=== PATIENT | female | born 1940 | race Caucasian/White ===

== ENCOUNTER 2023-02-11 19:20 | Inpatient (IN) | payer MEDICARE, BC ==
[~2023-02-11] VITALS: Ht 165.1 cm; Wt 74.8 kg
[2023-02-11] MEDS ORDERED: CHOL400C5 PO (19:45)
[2023-02-11] MEDS ORDERED: CYAN100T44 PO (19:45)
[2023-02-11] MEDS ORDERED: CETI-90 PO (19:45)
[2023-02-11] MEDS ORDERED: DILT300T11 PO (19:45)
[2023-02-11] MEDS ORDERED: CYAN10006 IJ (19:45)
[2023-02-11] MEDS ORDERED: GABA-532 PO (19:45)
[2023-02-11] MEDS ORDERED: VITA-287 PO (19:45)
[2023-02-11] MEDS ORDERED: LOPE2CAP40 PO (19:45)
[2023-02-11] MEDS ORDERED: DAPA5TAB PO (19:45)
[2023-02-11] MEDS ORDERED: VIT1CAPS9 PO (19:45)
[2023-02-11] MEDS ORDERED: ALIS300T PO (19:45)
[2023-02-11] MEDS ORDERED: LEVO75TA7 PO (19:45)
[2023-02-11] MEDS ORDERED: MAGN200T5 PO (19:45)
[2023-02-11] MEDS ORDERED: ICOS1CAP PO (19:45)
[2023-02-11] MEDS ORDERED: EVOL140P3 SQ (19:45)
[2023-02-11] MEDS ORDERED: SITA100T PO (19:45)
[2023-02-11] MEDS ORDERED: APIX5TAB PO (19:45)
[2023-02-11] MEDS ORDERED: DONE10TA44 PO (19:45)
[2023-02-11 20:11] LABS: BASOPHILS % (AUTO) 0.2 % (0.0-2.0); DIFFERENTIAL COMMENT 0; HEMOGLOBIN 12.7 g/dL (10.9-14.3); LYMPHOCYTES # (AUTO) 0.8 K/uL (0.8-4.8); LYMPHOCYTES % (AUTO) 4.7 % (20.5-51.5); MEAN CORPUSCULAR HEMOGLOBIN 28.8 uug (24.7-32.8); MEAN CORPUSCULAR HGB CONC 33 g/dL (32.3-35.6); MEAN CORPUSCULAR VOLUME 88.4 fL (75.5-95.3); MONOCYTES # (AUTO) 1.3 K/uL (0.1-1.30); MONOCYTES % (AUTO) 7.3 % (0.0-11.0); NEUTROPHILS # (AUTO) 15.6 K/uL (1.8-8.9); NEUTROPHILS % (AUTO) 87.8 % (38.5-71.5); PLATELET COUNT (AUTO) 286 K/uL (179-408); RED BLOOD CELL COUNT(AUTO) 4.41 MIL/uL (3.63-4.92); RED CELL DISTRIBUTION WIDTH 14.7 % (12.3-17.7); WHITE BLOOD COUNT (AUTO) 17.7 K/uL (3.8-11.8)
[2023-02-11 20:13] LABS: CALCIUM 10.4 mg/dL (8.5-10.1); CARBON DIOXIDE 27 mmol/L (21-32); CHLORIDE 99 mmol/L (98-107); CREATININE 1.2 mg/dL (0.6-1.3); GLUCOSE 172 mg/dL (74-106); POTASSIUM 4.1 mmol/L (3.5-5.1); SODIUM SERUM 136 mmol/L (136-145); UREA NITROGEN, BLOOD 23 mg/dL (7-18)
[2023-02-11 20:20] LABS: AMMONIA < 10 umol/L (11-32)
[2023-02-11 20:21] LABS: ALANINE AMINOTRANSFERASE 17 U/L (14-59); ALBUMIN 3.4 g/dL (3.4-5.0); ALKALINE PHOSPHATASE 109 U/L (50-136); ASPARTATE AMINOTRANSFERASE 16 U/L (15-37); BILIRUBIN,DIRECT 0.2 mg/dL (0.0-0.2); BILIRUBIN,TOTAL 0.5 mg/dL (0.2-1.0)
[2023-02-11 20:27] LABS: THYROID STIMULATING HORMONE 1.57 mIU/mL (0.358-3.740)
[2023-02-11] MEDS ORDERED: levoFLOXacin 750 MG/D5W 150 ML PIGGYBACK IV ONE (20:30)
[2023-02-11] MEDS ORDERED: levoFLOXacin 750MG/D5W 150 ML IV ONE (20:40)
[2023-02-11 21:57] LABS: *BILIRUBIN,URIN NEGATIVE (NEGATIVE); *BLOOD, URINE 3+ (NEGATIVE); *COLOR,URINE YELLOW (YELLOW); *KETONES,URINE 1+ (NEGATIVE); *PROTEIN,URINE 2+ (NEGATIVE); *UROBILINOGEN,URINE 0.2 E.U./dl (NORMAL); LEUKOCYTE ESTERASE ,URINE NEGATIVE (NEGATIVE); NITRITE, URINE NEGATIVE (NEGATIVE)
[2023-02-11 21:58] LABS: *CLARITY,URINE HAZY (CLEAR); UGLUCOSE 3+ (NEGATIVE)
[2023-02-11 21:59] LABS: BACTERIA,URINE FEW /HPF (NONE SEEN); RBC,URINE 50-80 /HPF (0-3); SQUAMOUS EPITHELIAL CELL,UR FEW /HPF (NONE SEEN); WBC,URINE 0-3 /HPF (0-3)
[2023-02-11] MEDS ORDERED: CEFEPIME HCL 1 G in IV DEXTROSE 5% 50 ML IV ONE (22:15)
[2023-02-11] MEDS ORDERED: CEFEPIME HCL 1 G VIAL ONE (22:25)
[2023-02-11] MEDS ORDERED: ONDANSETRON 4 MG/2 ML VIAL IV PRN (23:00)
[2023-02-11] MEDS ORDERED: DEXTROSE 50% 50 ML DISP.SYRIN IV PRN (23:00)
[2023-02-11] MEDS ORDERED: MAGNESIUM HYDROXIDE 30 ML LIQUID UDC PO PRN (23:00)
[2023-02-11] MEDS ORDERED: REMEDY ESSENTIAL ZINC PASTE 113 GM TP PRN (23:00)
[2023-02-12 02:00] VITALS: BP 126/65; TEMP 98; O2SAT 96
[2023-02-12 04:00] VITALS: BP 125/63; TEMP 97.9; O2SAT 93
[2023-02-12] MEDS ORDERED: CEFEPIME HCL 1 G VIAL ONE (04:46)
[2023-02-12] MEDS: IV NS 1000 ML 1,000 ML IV PRN (04:54)
[2023-02-12] MEDS ORDERED: CEFEPIME HCL 1 G in IV DEXTROSE 5% 50 ML IV SCH ×2 (06:00→11:00)
[2023-02-12] MEDS: PANTOPRAZOLE SODIUM 40 MG TABLET.DR PO SCH (06:29)
[2023-02-12] MEDS: LEVOTHYROXINE SODIUM 75 MCG TABLET PO SCH (06:29)
[2023-02-12 06:59] LABS: BASOPHILS % (AUTO) 0.2 % (0.0-2.0); EOSINOPHILS % (AUTO) 0.2 % (0.0-7.0); HEMATOCRIT 36.3 % (31.2-41.9); HEMOGLOBIN 11.9 g/dL (10.9-14.3); LYMPHOCYTES # (AUTO) 1.3 K/uL (0.8-4.8); LYMPHOCYTES % (AUTO) 7.3 % (20.5-51.5); MEAN CORPUSCULAR HGB CONC 33 g/dL (32.3-35.6); MEAN CORPUSCULAR VOLUME 88.3 fL (75.5-95.3); MONOCYTES # (AUTO) 1.7 K/uL (0.1-1.30); MONOCYTES % (AUTO) 9.6 % (0.0-11.0); NEUTROPHILS # (AUTO) 14.5 K/uL (1.8-8.9); NEUTROPHILS % (AUTO) 82.7 % (38.5-71.5); PLATELET COUNT (AUTO) 245 K/uL (179-408); RED BLOOD CELL COUNT(AUTO) 4.11 MIL/uL (3.63-4.92); RED CELL DISTRIBUTION WIDTH 14.6 % (12.3-17.7); WHITE BLOOD COUNT (AUTO) 17.5 K/uL (3.8-11.8)
[2023-02-12 07:16] LABS: CALCIUM 9.8 mg/dL (8.5-10.1); CARBON DIOXIDE 27 mmol/L (21-32); CHLORIDE 101 mmol/L (98-107); CREATININE 1.1 mg/dL (0.6-1.3); GLUCOSE 156 mg/dL (74-106); MAGNESIUM 2.1 mg/dL (1.8-2.4); PHOSPHOROUS 2.8 mg/dL (2.5-4.9); SODIUM SERUM 137 mmol/L (136-145); UREA NITROGEN, BLOOD 19 mg/dL (7-18)
[2023-02-12 07:19] LABS: DIFFERENTIAL COMMENT 1
[2023-02-12] MEDS: BLOOD SUGAR DIAGNOSTIC 1 EACH STRIP VI SCH ×4 (07:45→21:21)
[2023-02-12] MEDS: CETIRIZINE HCL 10 MG TABLET PO SCH (08:44)
[2023-02-12] MEDS: CHOLECALCIFEROL 1,000 UNIT TABLET PO SCH (08:44)
[2023-02-12] MEDS: DONEPEZIL 10 MG TABLET PO SCH (08:44)
[2023-02-12] MEDS: VITAMIN B COMPLEX 1 TABLET PO SCH (08:45)
[2023-02-12] MEDS: OMEGA-3 FATTY ACIDS/FISH OIL CAPSULE PO SCH ×2 (08:45→17:00)
[2023-02-12] MEDS: DILTIAZEM HCL CD 300 MG CAP.SR.24H PO SCH (08:48)
[2023-02-12] MEDS ORDERED: CYANOCOBALAMIN 100 MCG TABLET PO SCH (09:00)
[2023-02-12] MEDS ORDERED: ALISKIREN HEMIFUMARATE 300 MG PO SCH (09:00)
[2023-02-12] MEDS: CYANOCOBALAMIN 1,000 MCG TABLET PO SCH (09:50)
[2023-02-12] MEDS: APIXABAN 5 MG TABLET PO SCH ×2 (09:51→17:00)
[2023-02-12] MEDS: INSULIN REGULAR, HUMAN 300 UNIT/3 ML VIAL SQ PRN ×2 (12:03→17:01)
[2023-02-12 16:00] VITALS: BP 124/44; TEMP 99.1; O2SAT 95
[2023-02-12] MEDS: CEFEPIME HCL 1 G in IV DEXTROSE 5% 50 ML IV SCH (16:59)
[2023-02-12] MEDS ORDERED: DEXTROSE 50% 50 ML DISP.SYRIN IV PRN (19:00)
[2023-02-12] MEDS ORDERED: INSULIN REGULAR, HUMAN 300 UNITS/3 ML VIAL SQ PRN (19:00)
[2023-02-12 22:00] VITALS: BP 120/54; TEMP 98.6; O2SAT 96
[2023-02-13] MEDS: CEFEPIME HCL 1 G in IV DEXTROSE 5% 50 ML IV SCH ×2 (05:29→16:03)
[2023-02-13] MEDS: PANTOPRAZOLE SODIUM 40 MG TABLET.DR PO SCH (06:48)
[2023-02-13] MEDS: LEVOTHYROXINE SODIUM 75 MCG TABLET PO SCH (06:48)
[2023-02-13] MEDS: BLOOD SUGAR DIAGNOSTIC 1 EACH STRIP VI SCH ×4 (07:07→21:16)
[2023-02-13 07:29] LABS: BASOPHILS % (AUTO) 0.2 % (0.0-2.0); EOSINOPHILS # (AUTO) 0.1 K/uL (0.0-0.7); EOSINOPHILS % (AUTO) 0.4 % (0.0-7.0); HEMATOCRIT 35.5 % (31.2-41.9); HEMOGLOBIN 11.7 g/dL (10.9-14.3); LYMPHOCYTES # (AUTO) 1.1 K/uL (0.8-4.8); LYMPHOCYTES % (AUTO) 8.2 % (20.5-51.5); MEAN CORPUSCULAR HGB CONC 33 g/dL (32.3-35.6); MEAN CORPUSCULAR VOLUME 87.8 fL (75.5-95.3); MONOCYTES # (AUTO) 1.4 K/uL (0.1-1.30); MONOCYTES % (AUTO) 9.9 % (0.0-11.0); NEUTROPHILS # (AUTO) 11.2 K/uL (1.8-8.9); NEUTROPHILS % (AUTO) 81.3 % (38.5-71.5); PLATELET COUNT (AUTO) 238 K/uL (179-408); RED BLOOD CELL COUNT(AUTO) 4.04 MIL/uL (3.63-4.92); RED CELL DISTRIBUTION WIDTH 14.3 % (12.3-17.7); WHITE BLOOD COUNT (AUTO) 13.8 K/uL (3.8-11.8)
[2023-02-13 07:35] LABS: DIFFERENTIAL COMMENT 1
[2023-02-13 07:39] LABS: CALCIUM 10.3 mg/dL (8.5-10.1); CARBON DIOXIDE 27 mmol/L (21-32); CHLORIDE 102 mmol/L (98-107); CREATININE 1.2 mg/dL (0.6-1.3); GLUCOSE 142 mg/dL (74-106); MAGNESIUM 2.1 mg/dL (1.8-2.4); PHOSPHOROUS 2.4 mg/dL (2.5-4.9); POTASSIUM 4.5 mmol/L (3.5-5.1); SODIUM SERUM 136 mmol/L (136-145); UREA NITROGEN, BLOOD 20 mg/dL (7-18)
[2023-02-13] MEDS: DONEPEZIL 10 MG TABLET PO SCH (08:36)
[2023-02-13] MEDS: CYANOCOBALAMIN 1,000 MCG TABLET PO SCH (08:36)
[2023-02-13] MEDS: APIXABAN 5 MG TABLET PO SCH ×2 (08:36→16:04)
[2023-02-13] MEDS: OMEGA-3 FATTY ACIDS/FISH OIL CAPSULE PO SCH ×2 (08:37→16:03)
[2023-02-13] MEDS: CETIRIZINE HCL 10 MG TABLET PO SCH (08:37)
[2023-02-13] MEDS: CHOLECALCIFEROL 1,000 UNIT TABLET PO SCH (08:37)
[2023-02-13] MEDS: VITAMIN B COMPLEX 1 TABLET PO SCH (08:40)
[2023-02-13] MEDS: DILTIAZEM HCL CD 300 MG CAP.SR.24H PO SCH (08:43)
[2023-02-13] MEDS: INSULIN REGULAR, HUMAN 300 UNIT/3 ML VIAL SQ PRN ×3 (10:52→21:17)
[2023-02-13 12:00] VITALS: BP 120/82; TEMP 98.2; O2SAT 98
[2023-02-13] MEDS: GLUCERNA SHAKE 237 ML CAN PO SCH ×2 (12:55→16:06)
[2023-02-13 16:00] VITALS: BP 127/64; TEMP 98.3; O2SAT 95
[2023-02-13] MEDS ORDERED: NEUTRA PHOS PACKET PO ONE (16:30)
[2023-02-13] MEDS: IV NS 1000 ML 1,000 ML IV PRN (18:41)
[2023-02-13 20:00] VITALS: BP 142/70; TEMP 99; O2SAT 96
[2023-02-14] VITALS: BP 138/69; TEMP 98.9; O2SAT 94
[2023-02-14 04:00] VITALS: BP 136/57; TEMP 98.8; O2SAT 93
[2023-02-14] MEDS: CEFEPIME HCL 1 G in IV DEXTROSE 5% 50 ML IV SCH ×2 (05:50→16:29)
[2023-02-14] MEDS: PANTOPRAZOLE SODIUM 40 MG TABLET.DR PO SCH (06:16)
[2023-02-14] MEDS: LEVOTHYROXINE SODIUM 75 MCG TABLET PO SCH (06:16)
[2023-02-14 06:21] LABS: BASOPHILS % (AUTO) 0.1 % (0.0-2.0); EOSINOPHILS % (AUTO) 0.2 % (0.0-7.0); HEMATOCRIT 33.9 % (31.2-41.9); HEMOGLOBIN 11.3 g/dL (10.9-14.3); LYMPHOCYTES # (AUTO) 1.2 K/uL (0.8-4.8); LYMPHOCYTES % (AUTO) 9.7 % (20.5-51.5); MEAN CORPUSCULAR HEMOGLOBIN 29.2 uug (24.7-32.8); MEAN CORPUSCULAR HGB CONC 33 g/dL (32.3-35.6); MEAN CORPUSCULAR VOLUME 87.8 fL (75.5-95.3); MONOCYTES # (AUTO) 1.2 K/uL (0.1-1.30); MONOCYTES % (AUTO) 9.8 % (0.0-11.0); NEUTROPHILS # (AUTO) 10.1 K/uL (1.8-8.9); NEUTROPHILS % (AUTO) 80.2 % (38.5-71.5); PLATELET COUNT (AUTO) 255 K/uL (179-408); RED BLOOD CELL COUNT(AUTO) 3.86 MIL/uL (3.63-4.92); RED CELL DISTRIBUTION WIDTH 14.4 % (12.3-17.7); WHITE BLOOD COUNT (AUTO) 12.6 K/uL (3.8-11.8)
[2023-02-14 06:32] LABS: DIFFERENTIAL COMMENT 1
[2023-02-14 06:35] LABS: CALCIUM 9.9 mg/dL (8.5-10.1); CARBON DIOXIDE 29 mmol/L (21-32); CHLORIDE 104 mmol/L (98-107); GLUCOSE 122 mg/dL (74-106); PHOSPHOROUS 2.5 mg/dL (2.5-4.9); POTASSIUM 3.8 mmol/L (3.5-5.1); SODIUM SERUM 138 mmol/L (136-145); UREA NITROGEN, BLOOD 17 mg/dL (7-18)
[2023-02-14] MEDS: ACETAMINOPHEN 325 MG TABLET PO PRN (06:35)
[2023-02-14] MEDS: BLOOD SUGAR DIAGNOSTIC 1 EACH STRIP VI SCH ×4 (06:41→21:08)
[2023-02-14] MEDS: OMEGA-3 FATTY ACIDS/FISH OIL CAPSULE PO SCH ×2 (08:32→16:35)
[2023-02-14] MEDS: CYANOCOBALAMIN 1,000 MCG TABLET PO SCH (08:33)
[2023-02-14] MEDS: APIXABAN 5 MG TABLET PO SCH ×2 (08:33→16:35)
[2023-02-14] MEDS: DONEPEZIL 10 MG TABLET PO SCH (08:33)
[2023-02-14] MEDS: CHOLECALCIFEROL 1,000 UNIT TABLET PO SCH (08:33)
[2023-02-14] MEDS: CETIRIZINE HCL 10 MG TABLET PO SCH (08:33)
[2023-02-14] MEDS: VITAMIN B COMPLEX 1 TABLET PO SCH (08:34)
[2023-02-14] MEDS: DILTIAZEM HCL CD 300 MG CAP.SR.24H PO SCH (08:34)
[2023-02-14] MEDS: GLUCERNA SHAKE 237 ML CAN PO SCH ×3 (08:35→16:36)
[2023-02-14] MEDS: INSULIN REGULAR, HUMAN 300 UNIT/3 ML VIAL SQ PRN ×2 (11:45→21:09)
[2023-02-14 12:01] VITALS: BP 130/65; TEMP 98.1; O2SAT 97
[2023-02-14 16:14] VITALS: BP 129/63; TEMP 98.1; O2SAT 98
[2023-02-14 20:13] VITALS: BP 147/61; TEMP 98.5; O2SAT 97
[2023-02-15] VITALS: BP 146/68; TEMP 98.8; O2SAT 97
[2023-02-15 04:00] VITALS: BP 131/59; TEMP 98.4; O2SAT 99
[2023-02-15] MEDS: CEFEPIME HCL 1 G in IV DEXTROSE 5% 50 ML IV SCH ×2 (05:22→16:43)
[2023-02-15] MEDS: LEVOTHYROXINE SODIUM 75 MCG TABLET PO SCH (06:28)
[2023-02-15] MEDS: PANTOPRAZOLE SODIUM 40 MG TABLET.DR PO SCH (06:28)
[2023-02-15] MEDS: BLOOD SUGAR DIAGNOSTIC 1 EACH STRIP VI SCH ×3 (06:31→16:31)
[2023-02-15 06:56] LABS: BASOPHILS % (AUTO) 0.3 % (0.0-2.0); EOSINOPHILS % (AUTO) 0.4 % (0.0-7.0); HEMATOCRIT 35.1 % (31.2-41.9); HEMOGLOBIN 11.6 g/dL (10.9-14.3); LYMPHOCYTES # (AUTO) 0.9 K/uL (0.8-4.8); LYMPHOCYTES % (AUTO) 9.5 % (20.5-51.5); MEAN CORPUSCULAR HEMOGLOBIN 28.9 uug (24.7-32.8); MEAN CORPUSCULAR HGB CONC 33 g/dL (32.3-35.6); MEAN CORPUSCULAR VOLUME 87.5 fL (75.5-95.3); MONOCYTES # (AUTO) 0.9 K/uL (0.1-1.30); MONOCYTES % (AUTO) 9.8 % (0.0-11.0); NEUTROPHILS # (AUTO) 7.2 K/uL (1.8-8.9); PLATELET COUNT (AUTO) 269 K/uL (179-408); RED BLOOD CELL COUNT(AUTO) 4.02 MIL/uL (3.63-4.92); RED CELL DISTRIBUTION WIDTH 14.6 % (12.3-17.7)
[2023-02-15 06:57] LABS: DIFFERENTIAL COMMENT 1
[2023-02-15 07:17] LABS: CALCIUM 9.9 mg/dL (8.5-10.1); PHOSPHOROUS 2.5 mg/dL (2.5-4.9); POTASSIUM 3.8 mmol/L (3.5-5.1)
[2023-02-15] MEDS: INSULIN REGULAR, HUMAN 300 UNIT/3 ML VIAL SQ PRN ×2 (07:39→16:32)
[2023-02-15] MEDS: CHOLECALCIFEROL 1,000 UNIT TABLET PO SCH (08:22)
[2023-02-15] MEDS: VITAMIN B COMPLEX 1 TABLET PO SCH (08:22)
[2023-02-15] MEDS: DILTIAZEM HCL CD 300 MG CAP.SR.24H PO SCH (08:22)
[2023-02-15] MEDS: DONEPEZIL 10 MG TABLET PO SCH (08:22)
[2023-02-15] MEDS: OMEGA-3 FATTY ACIDS/FISH OIL CAPSULE PO SCH ×2 (08:22→16:44)
[2023-02-15] MEDS: ACETAMINOPHEN 325 MG TABLET PO PRN (08:23)
[2023-02-15] MEDS: APIXABAN 5 MG TABLET PO SCH ×2 (08:23→16:45)
[2023-02-15] MEDS: GLUCERNA SHAKE 237 ML CAN PO SCH ×3 (08:24→16:46)
[2023-02-15] MEDS: CETIRIZINE HCL 10 MG TABLET PO SCH (08:24)
[2023-02-15] MEDS: CYANOCOBALAMIN 1,000 MCG TABLET PO SCH (08:24)
[2023-02-15] MEDS: IV NS 1000 ML 1,000 ML IV PRN (10:09)
[2023-02-15 11:34] VITALS: BP 127/63; TEMP 98.5
[2023-02-15] MEDS ORDERED: LEVO500T90 PO (14:35)
[2023-02-15 16:02] VITALS: BP 112/50; TEMP 98
[2023-02-15 20:06] VITALS: BP 153/73; TEMP 97.8; O2SAT 97
== END 2023-02-15 20:30 | DRG 640 ==
LOC: ER 19:22 → MEDSURG3 22:44 → TELE3 22:45
PROVIDERS: ADMIT Nurse Practitioner Family; ATTEND Student in an Organized Health Care Education/Training Program
DX: E86.0 Dehydration (principal); G93.41 Metabolic encephalopathy; R65.11 Systemic inflammatory response syndrome (SIRS) of non-infectious origin with acute organ dysfunction; E11.65 Type 2 diabetes mellitus with hyperglycemia; E03.9 Hypothyroidism, unspecified; S90.512A Abrasion, left ankle, initial encounter; S90.511A Abrasion, right ankle, initial encounter; W19.XXXA Unspecified fall, initial encounter; Y92.099 Unspecified place in other non-institutional residence as the place of occurrence of the external cause; Z91.81 History of falling; I10 Essential (primary) hypertension; Z79.84 Long term (current) use of oral hypoglycemic drugs; Z88.0 Allergy status to penicillin; Z79.01 Long term (current) use of anticoagulants
CPT/HCPCS: 36415; 70450; 71045; 83605; 83735; 84100; 84443; 84484; 85025; 85730; 87040; 93005; A4663; A6209; G0378; J0692; J1815; J1956; J7040

== ENCOUNTER 2023-10-31 13:27 | Inpatient (IN) | payer BC, MEDICARE ==
[~2023-10-31] VITALS: Ht 160 cm; Wt 84.8 kg
[~2023-10-31 13:27] MED LIST: ALIS300T PO; APIX5TAB PO; CETI-90 PO; CHOL400C5 PO; CYAN10006 IJ; CYAN100T44 PO; DAPA5TAB PO; DILT300T11 PO; DONE10TA44 PO; EVOL140P3 SQ; GABA-532 PO; ICOS1CAP PO; LEVO500T90 PO; LEVO75TA7 PO; LOPE2CAP40 PO; MAGN200T5 PO; SITA100T PO; VIT1CAPS9 PO; VITA-287 PO
[2023-10-31] MEDS ORDERED: UBID200C36 PO (13:56)
[2023-10-31 14:00] LABS: BASOPHILS # (AUTO) 0.1 K/UL (0.0-0.2); BASOPHILS % (AUTO) 0.3 % (0.0-2.0); HEMATOCRIT 34.5 % (31.2-41.9); HEMOGLOBIN 10.6 g/dL (10.9-14.3); LYMPHOCYTES # (AUTO) 0.9 K/uL (0.8-4.8); LYMPHOCYTES % (AUTO) 3.7 % (20.5-51.5); MEAN CORPUSCULAR HEMOGLOBIN 23.5 uug (24.7-32.8); MEAN CORPUSCULAR HGB CONC 31 g/dL (32.3-35.6); MEAN CORPUSCULAR VOLUME 76.9 fL (75.5-95.3); MONOCYTES # (AUTO) 1.3 K/uL (0.1-1.30); MONOCYTES % (AUTO) 5.7 % (0.0-11.0); NEUTROPHILS # (AUTO) 21.1 K/uL (1.8-8.9); NEUTROPHILS % (AUTO) 90.3 % (38.5-71.5); PLATELET COUNT (AUTO) 360 K/uL (179-408); RED BLOOD CELL COUNT(AUTO) 4.48 MIL/uL (3.63-4.92); RED CELL DISTRIBUTION WIDTH 16.7 % (12.3-17.7); WHITE BLOOD COUNT (AUTO) 23.3 K/uL (3.8-11.8)
[2023-10-31 14:02] LABS: DIFFERENTIAL COMMENT 1
[2023-10-31 14:14] LABS: CALCIUM 10.5 mg/dL (8.5-10.1); CARBON DIOXIDE 26 mmol/L (21-32); CHLORIDE 96 mmol/L (98-107); CREATININE 1.3 mg/dL (0.6-1.3); GLUCOSE 187 mg/dL (74-106); POTASSIUM 4.7 mmol/L (3.5-5.1); SODIUM SERUM 133 mmol/L (136-145); UREA NITROGEN, BLOOD 17 mg/dL (7-18)
[2023-10-31 14:22] LABS: ALANINE AMINOTRANSFERASE 12 U/L (14-59); ALBUMIN 3.1 g/dL (3.4-5.0); ALKALINE PHOSPHATASE 110 U/L (50-136); ASPARTATE AMINOTRANSFERASE 9 U/L (15-37); BILIRUBIN,DIRECT 0.2 mg/dL (0.0-0.2); BILIRUBIN,TOTAL 0.8 mg/dL (0.2-1.0); LIPASE 27 U/L (16-77); TOTAL PROTEIN, SERUM 7.6 g/dL (6.4-8.2)
[2023-10-31] MEDS: METRONIDAZOLE 500 MG/NS 100 ML PIGGYBACK IV ONE (15:05)
[2023-10-31] MEDS ORDERED: METRONIDAZOLE 500 MG/NS 100ML 100 ML IV ONE (15:07)
[2023-10-31] MEDS: CEFTRIAXONE 2 G in IV DEXTROSE 5% 100 ML IV ONE (15:56)
[2023-10-31 17:31] LABS: *BILIRUBIN,URIN NEGATIVE (NEGATIVE); *BLOOD, URINE 2+ (NEGATIVE); *CLARITY,URINE CLOUDY (CLEAR); *COLOR,URINE YELLOW (YELLOW); *KETONES,URINE 2+ (NEGATIVE); *PROTEIN,URINE 2+ (NEGATIVE); *UROBILINOGEN,URINE 0.2 E.U./dl (NORMAL); LEUKOCYTE ESTERASE ,URINE 3+ (NEGATIVE); NITRITE, URINE POSITIVE (NEGATIVE); PH,URINE 5.5 (5.0-8.0)
[2023-10-31 17:32] LABS: UGLUCOSE 3+ (NEGATIVE)
[2023-10-31 18:01] LABS: BACTERIA,URINE MODERATE /HPF (NONE SEEN); RBC,URINE 20-50 /HPF (0-3); SQUAMOUS EPITHELIAL CELL,UR FEW /HPF (NONE SEEN); WBC,URINE TNTC /HPF (0-3)
[2023-10-31] MEDS ORDERED: MEROPENEM 1 G in IV NORMAL SALINE 100 ML IV SCH (22:00)
[2023-10-31 22:23] VITALS: BP 120/58; TEMP 98.8; O2SAT 96
[2023-10-31] MEDS: IV D5 1/2 NS 1000 ML 1,000 ML IV PRN (22:34)
[2023-10-31] MEDS ORDERED: MEROPENEM 1GM/NS 100ML IVPB **ER PYXIS ONLY IV ONE (22:54)
[2023-10-31] MEDS: MEROPENEM 1 G in IV NORMAL SALINE 100 ML IV SCH (22:59)
[2023-11-01 07:33] LABS: BASOPHILS # (AUTO) 0.1 K/UL (0.0-0.2); BASOPHILS % (AUTO) 0.2 % (0.0-2.0); HEMATOCRIT 30.7 % (31.2-41.9); HEMOGLOBIN 9.7 g/dL (10.9-14.3); LYMPHOCYTES # (AUTO) 1.4 K/uL (0.8-4.8); LYMPHOCYTES % (AUTO) 3.6 % (20.5-51.5); MEAN CORPUSCULAR HGB CONC 32 g/dL (32.3-35.6); MEAN CORPUSCULAR VOLUME 75.7 fL (75.5-95.3); MONOCYTES # (AUTO) 2.1 K/uL (0.1-1.30); MONOCYTES % (AUTO) 5.3 % (0.0-11.0); NEUTROPHILS % (AUTO) 90.9 % (38.5-71.5); PLATELET COUNT (AUTO) 323 K/uL (179-408); RED BLOOD CELL COUNT(AUTO) 4.05 MIL/uL (3.63-4.92); RED CELL DISTRIBUTION WIDTH 16.2 % (12.3-17.7)
[2023-11-01 07:49] LABS: ALANINE AMINOTRANSFERASE 14 U/L (14-59); ALBUMIN 2.5 g/dL (3.4-5.0); ALKALINE PHOSPHATASE 106 U/L (50-136); ASPARTATE AMINOTRANSFERASE 12 U/L (15-37); BILIRUBIN,TOTAL 0.7 mg/dL (0.2-1.0); CALCIUM 9.7 mg/dL (8.5-10.1); CARBON DIOXIDE 27 mmol/L (21-32); CHLORIDE 97 mmol/L (98-107); CHOLESTEROL 68 mg/dL (<200); CREATININE 1.1 mg/dL (0.6-1.3); GLUCOSE 180 mg/dL (74-106); HDL CHOLESTEROL 40 mg/dL (40-60); MAGNESIUM 1.9 mg/dL (1.8-2.4); PHOSPHOROUS 2.8 mg/dL (2.5-4.9); POTASSIUM 3.6 mmol/L (3.5-5.1); SODIUM SERUM 133 mmol/L (136-145); TOTAL PROTEIN, SERUM 6.8 g/dL (6.4-8.2); TRIGLYCERIDES 62 MG/DL (30-150); UREA NITROGEN, BLOOD 12 mg/dL (7-18)
[2023-11-01 07:50] LABS: IRON, SERUM 8 ug/dL (50-175)
[2023-11-01] MEDS: PANTOPRAZOLE SODIUM 40 MG VIAL IV SCH (08:31)
[2023-11-01] MEDS: ENOXAPARIN SODIUM 80 MG/0.8 ML DISP.SYRIN SQ SCH (08:36)
[2023-11-01] MEDS ORDERED: ENOXAPARIN SODIUM 30 MG/0.3 ML DISP.SYRIN SUBCUT SCH (09:00)
[2023-11-01 09:12] LABS: DIFFERENTIAL COMMENT 1
[2023-11-01 09:28] LABS: THYROID STIMULATING HORMONE 1.711 mIU/mL (0.358-3.740)
[2023-11-01 09:37] LABS: WHITE BLOOD COUNT (AUTO) 38.5 K/uL (3.8-11.8)
[2023-11-01] MEDS ORDERED: IOHEXOL 300MG/ML 100 ML INFUS..BTL ONE (09:55)
[2023-11-01] MEDS ORDERED: SWABABLE VALVE TRANSFER SET EA MC ONE (09:55)
[2023-11-01] MEDS ORDERED: IV NORMAL SALINE 250 ML IV ONE (09:55)
[2023-11-01] MEDS: VANCOMYCIN IV 1,000 MG in IV DEXTROSE 5% 250 ML IV ONE (11:47)
[2023-11-01 12:00] VITALS: BP 142/72; TEMP 97.2; O2SAT 98
[2023-11-01] MEDS: SOD FERRIC GLUC COMPLX/SUCROSE 125 MG in IV NORMAL SALINE 100 ML IV SCH (14:21)
[2023-11-01 14:45] LABS: BAND % (MANUAL) 25 % (0-10); LYMPHOCYTES % (MANUAL) 8 % (20-40); MONOCYTES % (MANUAL) 7 % (2-10); NEUTROPHILS % (MANUAL) 58 % (42-75); PLATELET ESTIMATE ADEQUATE; REACTIVE LYMPHOCYTES 2 % (0-0)
[2023-11-01 14:46] LABS: ANISOCYTOSIS 2+
[2023-11-01 16:00] VITALS: BP 121/55; TEMP 97.6; O2SAT 98
[2023-11-01] MEDS: MEROPENEM 1 G in IV NORMAL SALINE 100 ML IV SCH (17:13)
[2023-11-01] MEDS: MICAFUNGIN SODIUM 100 MG in IV NORMAL SALINE 100 ML IV SCH (19:14)
[2023-11-01 20:27] VITALS: BP 132/80; TEMP 99.1; O2SAT 92
[2023-11-02 00:12] VITALS: BP 138/64; TEMP 97.7; O2SAT 92
[2023-11-02 04:30] VITALS: BP 124/76; TEMP 97.9; O2SAT 93
[2023-11-02 06:24] LABS: BASOPHILS # (AUTO) 0.1 K/UL (0.0-0.2); BASOPHILS % (AUTO) 0.3 % (0.0-2.0); EOSINOPHILS # (AUTO) 0.1 K/uL (0.0-0.7); EOSINOPHILS % (AUTO) 0.2 % (0.0-7.0); HEMATOCRIT 33.7 % (31.2-41.9); HEMOGLOBIN 10.5 g/dL (10.9-14.3); LYMPHOCYTES # (AUTO) 1.5 K/uL (0.8-4.8); LYMPHOCYTES % (AUTO) 3.9 % (20.5-51.5); MEAN CORPUSCULAR HEMOGLOBIN 23.6 uug (24.7-32.8); MEAN CORPUSCULAR HGB CONC 31 g/dL (32.3-35.6); MEAN CORPUSCULAR VOLUME 75.7 fL (75.5-95.3); MONOCYTES # (AUTO) 1.7 K/uL (0.1-1.30); MONOCYTES % (AUTO) 4.3 % (0.0-11.0); NEUTROPHILS # (AUTO) 35.2 K/uL (1.8-8.9); NEUTROPHILS % (AUTO) 91.3 % (38.5-71.5); PLATELET COUNT (AUTO) 313 K/uL (179-408); RED BLOOD CELL COUNT(AUTO) 4.46 MIL/uL (3.63-4.92); RED CELL DISTRIBUTION WIDTH 16.2 % (12.3-17.7)
[2023-11-02 06:38] LABS: DIFFERENTIAL COMMENT 1; WHITE BLOOD COUNT (AUTO) 38.5 K/uL (3.8-11.8)
[2023-11-02 06:51] LABS: ALBUMIN 2.3 g/dL (3.4-5.0); ALKALINE PHOSPHATASE 116 U/L (50-136); ASPARTATE AMINOTRANSFERASE 7 U/L (15-37); BILIRUBIN,TOTAL 0.5 mg/dL (0.2-1.0); CALCIUM 10.1 mg/dL (8.5-10.1); CARBON DIOXIDE 27 mmol/L (21-32); CHLORIDE 103 mmol/L (98-107); GLUCOSE 146 mg/dL (74-106); MAGNESIUM 2.1 mg/dL (1.8-2.4); PHOSPHOROUS 2.6 mg/dL (2.5-4.9); POTASSIUM 3.3 mmol/L (3.5-5.1); SODIUM SERUM 138 mmol/L (136-145); TOTAL PROTEIN, SERUM 6.4 g/dL (6.4-8.2); UREA NITROGEN, BLOOD 12 mg/dL (7-18); VANCOMYCIN,RANDOM 7.4 ug/mL (20.0-30.0)
[2023-11-02 06:56] LABS: ALANINE AMINOTRANSFERASE 6 U/L (14-59)
[2023-11-02 08:00] VITALS: BP 132/72; TEMP 97.6; O2SAT 97
[2023-11-02] MEDS: POTASSIUM CHLORIDE 50 ML IV SCH (10:26)
[2023-11-02 11:38] LABS: *OCCULT BLOOD STOOL POSITIVE (NEGATIVE)
[2023-11-02] MEDS: VANCOMYCIN IV 1,000 MG in IV DEXTROSE 5% 250 ML IV SCH (12:06)
[2023-11-02 15:56] VITALS: BP 156/86; TEMP 97.6; O2SAT 97
[2023-11-02 18:10] LABS: BAND % (MANUAL) 29 % (0-10); NEUTROPHILS % (MANUAL) 56 % (42-75)
[2023-11-02 18:13] LABS: EOSINOPHILS % (MANUAL) 2 % (0-8); LYMPHOCYTES % (MANUAL) 7 % (20-40); METAMYELOCYTES % 2 % (0-1); MONOCYTES % (MANUAL) 5 % (2-10)
[2023-11-02 18:14] LABS: ANISOCYTOSIS 1+; PLATELET ESTIMATE ADEQUATE
[2023-11-02 20:00] VITALS: BP 144/82; TEMP 98.6; O2SAT 95
[2023-11-03 06:00] VITALS: BP 139/80; TEMP 98.2; O2SAT 93
[2023-11-03 06:58] LABS: BASOPHILS # (AUTO) 0.1 K/UL (0.0-0.2); BASOPHILS % (AUTO) 0.3 % (0.0-2.0); EOSINOPHILS # (AUTO) 0.1 K/uL (0.0-0.7); EOSINOPHILS % (AUTO) 0.2 % (0.0-7.0); HEMATOCRIT 31.7 % (31.2-41.9); HEMOGLOBIN 9.9 g/dL (10.9-14.3); LYMPHOCYTES # (AUTO) 1.1 K/uL (0.8-4.8); LYMPHOCYTES % (AUTO) 3.4 % (20.5-51.5); MEAN CORPUSCULAR HEMOGLOBIN 23.7 uug (24.7-32.8); MEAN CORPUSCULAR HGB CONC 31 g/dL (32.3-35.6); MEAN CORPUSCULAR VOLUME 75.3 fL (75.5-95.3); MONOCYTES # (AUTO) 1.2 K/uL (0.1-1.30); MONOCYTES % (AUTO) 3.8 % (0.0-11.0); NEUTROPHILS # (AUTO) 29.2 K/uL (1.8-8.9); NEUTROPHILS % (AUTO) 92.3 % (38.5-71.5); PLATELET COUNT (AUTO) 331 K/uL (179-408)
[2023-11-03 07:13] LABS: CARBON DIOXIDE 28 mmol/L (21-32); CHLORIDE 104 mmol/L (98-107); CREATININE 0.9 mg/dL (0.6-1.3); GLUCOSE 150 mg/dL (74-106); MAGNESIUM 1.9 mg/dL (1.8-2.4); POTASSIUM 3.4 mmol/L (3.5-5.1); SODIUM SERUM 139 mmol/L (136-145); UREA NITROGEN, BLOOD 13 mg/dL (7-18)
[2023-11-03 07:18] LABS: DIFFERENTIAL COMMENT 1; WHITE BLOOD COUNT (AUTO) 31.6 K/uL (3.8-11.8)
[2023-11-03 11:58] VITALS: BP 172/90; TEMP 98.2; O2SAT 95
[2023-11-03] MEDS: METOPROLOL TARTRATE 5 MG/5 ML VIAL IVP PRN (12:32)
[2023-11-03] MEDS: POTASSIUM CHLORIDE 50 ML IV SCH (13:22)
[2023-11-03] MEDS: MICAFUNGIN SODIUM 100 MG in IV NORMAL SALINE 100 ML IV SCH (16:22)
[2023-11-03 16:23] VITALS: BP 137/71; TEMP 97.7; O2SAT 94
[2023-11-03] MEDS: SODIUM PHOSPHATE MM 15 MMOL in IV NORMAL SALINE 250 ML IV ONE (16:23)
[2023-11-03] MEDS: FUROSEMIDE 20 MG/2 ML VIAL IV ONE (19:05)
[2023-11-03 20:00] VITALS: BP 148/80; TEMP 97.9; O2SAT 93
[2023-11-03 21:00] LABS: PROTEIN, BODY FLUID 3.4 G/DL
[2023-11-03] MEDS ORDERED: ENOXAPARIN SODIUM 80 MG/0.8 ML DISP.SYRIN SQ SCH (21:00)
[2023-11-04] MEDS: DILTIAZEM HCL 30 MG TABLET PO SCH
[2023-11-04 06:00] VITALS: BP 147/82; TEMP 98; O2SAT 94
[2023-11-04 07:13] LABS: CALCIUM 10.1 mg/dL (8.5-10.1); CARBON DIOXIDE 27 mmol/L (21-32); CHLORIDE 103 mmol/L (98-107); CREATININE 0.8 mg/dL (0.6-1.3); GLUCOSE 119 mg/dL (74-106); PHOSPHOROUS 2.6 mg/dL (2.5-4.9); POTASSIUM 3.5 mmol/L (3.5-5.1); SODIUM SERUM 141 mmol/L (136-145); UREA NITROGEN, BLOOD 11 mg/dL (7-18)
[2023-11-04 08:38] LABS: BASOPHILS # (AUTO) 0.2 K/UL (0.0-0.2); BASOPHILS % (AUTO) 0.8 % (0.0-2.0); EOSINOPHILS # (AUTO) 0.1 K/uL (0.0-0.7); EOSINOPHILS % (AUTO) 0.6 % (0.0-7.0); HEMATOCRIT 34.8 % (31.2-41.9); HEMOGLOBIN 10.9 g/dL (10.9-14.3); LYMPHOCYTES # (AUTO) 1.4 K/uL (0.8-4.8); LYMPHOCYTES % (AUTO) 5.2 % (20.5-51.5); MEAN CORPUSCULAR HEMOGLOBIN 23.7 uug (24.7-32.8); MEAN CORPUSCULAR HGB CONC 31 g/dL (32.3-35.6); MEAN CORPUSCULAR VOLUME 75.9 fL (75.5-95.3); MONOCYTES # (AUTO) 1.3 K/uL (0.1-1.30); MONOCYTES % (AUTO) 4.9 % (0.0-11.0); NEUTROPHILS # (AUTO) 23.3 K/uL (1.8-8.9); NEUTROPHILS % (AUTO) 88.5 % (38.5-71.5); PLATELET COUNT (AUTO) 329 K/uL (179-408); RED BLOOD CELL COUNT(AUTO) 4.59 MIL/uL (3.63-4.92); RED CELL DISTRIBUTION WIDTH 16.1 % (12.3-17.7); WHITE BLOOD COUNT (AUTO) 26.3 K/uL (3.8-11.8)
[2023-11-04 08:46] LABS: DIFFERENTIAL COMMENT 1
[2023-11-04 10:54] LABS: ALBUMIN 2.4 g/dL (3.4-5.0); BILIRUBIN,DIRECT 0.1 mg/dL (0.0-0.2); BILIRUBIN,TOTAL 0.5 mg/dL (0.2-1.0); TOTAL PROTEIN, SERUM 6.7 g/dL (6.4-8.2)
[2023-11-04] MEDS ORDERED: HEPARIN/NS 500 ML ONE (10:57)
[2023-11-04] MEDS ORDERED: ALBUMIN HUMAN 5% 250 ML ONE ×4 (10:58→17:57)
[2023-11-04 12:10] LABS: ALANINE AMINOTRANSFERASE 14 U/L (14-59); ALBUMIN 2.4 g/dL (3.4-5.0); ALKALINE PHOSPHATASE 133 U/L (50-136); ASPARTATE AMINOTRANSFERASE 17 U/L (15-37); BILIRUBIN,TOTAL 0.4 mg/dL (0.2-1.0); CALCIUM 9.9 mg/dL (8.5-10.1); CARBON DIOXIDE 29 mmol/L (21-32); CHLORIDE 103 mmol/L (98-107); GLUCOSE 200 mg/dL (74-106); POTASSIUM 3.2 mmol/L (3.5-5.1); SODIUM SERUM 140 mmol/L (136-145); TOTAL PROTEIN, SERUM 6.6 g/dL (6.4-8.2); UREA NITROGEN, BLOOD 12 mg/dL (7-18)
[2023-11-04 13:00] VITALS: BP 134/79; TEMP 98.7; O2SAT 94
[2023-11-04] MEDS ORDERED: ROPIVACAINE HCL/PF 0.5% ( 5 MG/ML ) , 20 ML VIAL ONE (15:18)
[2023-11-04] MEDS ORDERED: TRIAMCINOLONE ACETONIDE 50 MG/5 ML VIAL ONE (15:18)
[2023-11-04] MEDS ORDERED: KETAMINE HCL 500 MG/5 ML VIAL ONE (15:19)
[2023-11-04] MEDS ORDERED: MIDAZOLAM HCL 2 MG/2 ML VIAL ONE (15:19)
[2023-11-04] MEDS ORDERED: FENTANYL CITRATE 100 MCG/2 ML AMPUL ONE (15:19)
[2023-11-04] MEDS ORDERED: FAMOTIDINE. 20 MG/2 ML VIAL IV ONE (15:19)
[2023-11-04] MEDS ORDERED: ROCURONIUM BROMIDE 50 MG/5 ML VIAL ONE ×2 (15:20→18:20)
[2023-11-04] MEDS ORDERED: PROPOFOL 200 MG/20 ML BOTTLE ONE (15:37)
[2023-11-04] MEDS ORDERED: LIDOCAINE HCL 2% 20 ML VIAL ONE (15:45)
[2023-11-04] MEDS ORDERED: LIDOCAINE HCL 1% 20 ML VIAL ONE (15:49)
[2023-11-04] MEDS ORDERED: BUPIVACAINE 0.25% 30 ML VIAL ONE (16:37)
[2023-11-04] MEDS ORDERED: CLINDAMYCIN 600 MG PIGGYBACK**ER OMNI IV ONE (16:37)
[2023-11-04] MEDS ORDERED: BACITRACIN/POLYMYXIN B OINT 15 GM TUBE ONE (16:37)
[2023-11-04] MEDS ORDERED: LIDOCAINE 1%-EPI 1:100,000 20 ML VIAL ONE (16:37)
[2023-11-04] MEDS ORDERED: SEVOFLURANE 250 ML BOTTLE ONE (17:16)
[2023-11-04 17:32] LABS: ABG BASE EXCESS 1.1 mmol/L (-2.0-2.0); ABG HCO3 25.4 mmol/L (22.0-26.0); ABG PH 7.431 (7.340-7.440); ABG PO2 139.4 mmHg (75.0-100.0); ABG TOTAL HEMOGLOBIN 10.5 G/dL (12.0-16.0); AaDO2 98.8 mmHg; COHb 0.4 % (0.0-3.9); MetHb 0.1 % (0.0-1.5); O2Hb 98.1 % (94.0-97.0)
[2023-11-04] MEDS ORDERED: FUROSEMIDE 20 MG/2 ML VIAL ONE (17:56)
[2023-11-04] MEDS ORDERED: MAGNESIUM SULFATE/D5W 200 ML ONE (18:10)
[2023-11-04] MEDS: POTASSIUM CHLORIDE 50 ML IV STA (18:57)
[2023-11-04] MEDS ORDERED: METHYLENE BLUE 50 MG/10 ML AMPUL (0.5%) ONE (19:22)
[2023-11-04] MEDS ORDERED: INSULIN REGULAR, HUMAN 300 UNIT/3 ML VIAL ONE (19:22)
[2023-11-04] MEDS ORDERED: LABETALOL HCL 100 MG/20 ML VIAL ONE (19:24)
[2023-11-04 19:27] LABS: HEMATOCRIT 30.1 % (31.2-41.9); HEMOGLOBIN 9.4 g/dL (10.9-14.3)
[2023-11-04 19:32] LABS: CALCIUM 9.1 mg/dL (8.5-10.1); CARBON DIOXIDE 27 mmol/L (21-32); CHLORIDE 102 mmol/L (98-107); CREATININE 0.8 mg/dL (0.6-1.3); GLUCOSE 204 mg/dL (74-106); MAGNESIUM 2.3 mg/dL (1.8-2.4); POTASSIUM 4.5 mmol/L (3.5-5.1); SODIUM SERUM 137 mmol/L (136-145); UREA NITROGEN, BLOOD 10 mg/dL (7-18)
[2023-11-04 21:13] LABS: ABG HCO3 24.3 mmol/L (22.0-26.0); ABG PH 7.472 (7.340-7.440); ABG PO2 211.1 mmHg (75.0-100.0); ABG SITE ALINE; ABG TOTAL HEMOGLOBIN 10.6 G/dL (12.0-16.0); AaDO2 99.5 mmHg; COHb 0.1 % (0.0-3.9); MetHb 0.4 % (0.0-1.5); O2Hb 98.7 % (94.0-97.0)
[2023-11-05] VITALS (27 sets, daily range): BP systolic 108–167; BP diastolic 58–103; TEMP 98.8–99.3; O2SAT 94–99
[2023-11-05] MEDS: MORPHINE SULFATE 2 MG/1 ML DISP.SYRIN IV PRN (00:55)
[2023-11-05] MEDS: IV LACTATED RINGERS SOLUTION 1,000 ML BAG IV ONE (07:53)
[2023-11-05] MEDS: IV LACTATED RINGERS SOLUTION 1,000 ML IV PRN ×2 (08:29→18:23)
[2023-11-05] MEDS: PANTOPRAZOLE SODIUM 40 MG VIAL IV SCH (08:30)
[2023-11-05 09:04] LABS: BASOPHILS % (AUTO) 0.1 % (0.0-2.0); EOSINOPHILS % (AUTO) 0.1 % (0.0-7.0); HEMATOCRIT 38.3 % (31.2-41.9); HEMOGLOBIN 12.1 g/dL (10.9-14.3); LYMPHOCYTES # (AUTO) 0.8 K/uL (0.8-4.8); LYMPHOCYTES % (AUTO) 2.9 % (20.5-51.5); MEAN CORPUSCULAR HEMOGLOBIN 24.6 uug (24.7-32.8); MEAN CORPUSCULAR HGB CONC 32 g/dL (32.3-35.6); MEAN CORPUSCULAR VOLUME 77.6 fL (75.5-95.3); MONOCYTES # (AUTO) 1.2 K/uL (0.1-1.30); MONOCYTES % (AUTO) 4.1 % (0.0-11.0); NEUTROPHILS # (AUTO) 27.7 K/uL (1.8-8.9); NEUTROPHILS % (AUTO) 92.8 % (38.5-71.5); PLATELET COUNT (AUTO) 277 K/uL (179-408); RED BLOOD CELL COUNT(AUTO) 4.93 MIL/uL (3.63-4.92); RED CELL DISTRIBUTION WIDTH 16.5 % (12.3-17.7); WHITE BLOOD COUNT (AUTO) 29.8 K/uL (3.8-11.8)
[2023-11-05 09:06] LABS: CALCIUM 9.3 mg/dL (8.5-10.1); CARBON DIOXIDE 25 mmol/L (21-32); CHLORIDE 104 mmol/L (98-107); CREATININE 1.4 mg/dL (0.6-1.3); GLUCOSE 275 mg/dL (74-106); MAGNESIUM 2.1 mg/dL (1.8-2.4); NT-PRO BNP 3156 pg/mL (0-125); PHOSPHOROUS 3.4 mg/dL (2.5-4.9); SODIUM SERUM 135 mmol/L (136-145); UREA NITROGEN, BLOOD 13 mg/dL (7-18)
[2023-11-05 09:10] LABS: DIFFERENTIAL COMMENT 1
[2023-11-05 10:50] LABS: LYMPHOCYTES % (MANUAL) 2 % (20-40); MONOCYTES % (MANUAL) 4 % (2-10); NEUTROPHILS % (MANUAL) 94 % (42-75); PLATELET ESTIMATE ADEQUATE
[2023-11-05 10:51] LABS: ANISOCYTOSIS 1+
[2023-11-05] MEDS: HYDROMORPHONE 1 MG/1 ML DISP.SYRIN IV PRN (12:17)
[2023-11-05] MEDS: ACETAMINOPHEN 650 MG SUPP.RECT RC PRN (14:23)
[2023-11-05] MEDS: ALBUTEROL SULFATE 2.5 MG/ 0.5 ML NEBU NEB PRN (14:54)
[2023-11-05] MEDS ORDERED: INSULIN REGULAR, HUMAN 300 UNIT/3 ML VIAL SQ PRN (17:00)
[2023-11-05] MEDS ORDERED: DEXTROSE 50% 50 ML DISP.SYRIN IV PRN ×2 (17:00→17:15)
[2023-11-05] MEDS: BUMETANIDE 1 MG/4 ML VIAL IV ONE (17:00)
[2023-11-05] MEDS ORDERED: BLOOD SUGAR DIAGNOSTIC 1 EACH STRIP VI SCH (18:00)
[2023-11-05] MEDS: BLOOD SUGAR DIAGNOSTIC 1 EACH STRIP VI SCH (18:04)
[2023-11-05] MEDS: INSULIN REGULAR, HUMAN 300 UNIT/3 ML VIAL SQ PRN (18:04)
[2023-11-05] MEDS: ALBUTEROL SULFATE 2.5 MG/3 ML NEBU NEB PRN (19:39)
[2023-11-06] VITALS (27 sets, daily range): BP systolic 124–167; BP diastolic 69–95; TEMP 97.5–101.1; O2SAT 88–99
[2023-11-06 05:00] LABS: EOSINOPHILS # (AUTO) 0.1 K/uL (0.0-0.7); EOSINOPHILS % (AUTO) 0.2 % (0.0-7.0); NEUTROPHILS % (AUTO) 89.4 % (38.5-71.5); RED BLOOD CELL COUNT(AUTO) 4.51 MIL/uL (3.63-4.92); RED CELL DISTRIBUTION WIDTH 16.9 % (12.3-17.7)
[2023-11-06 05:01] LABS: BASOPHILS # (AUTO) 0.2 K/UL (0.0-0.2); BASOPHILS % (AUTO) 0.6 % (0.0-2.0); HEMATOCRIT 35.1 % (31.2-41.9); LYMPHOCYTES # (AUTO) 1.1 K/uL (0.8-4.8); LYMPHOCYTES % (AUTO) 3.4 % (20.5-51.5); MEAN CORPUSCULAR HEMOGLOBIN 24.5 uug (24.7-32.8); MEAN CORPUSCULAR HGB CONC 31 g/dL (32.3-35.6); MEAN CORPUSCULAR VOLUME 77.8 fL (75.5-95.3); MONOCYTES # (AUTO) 2.1 K/uL (0.1-1.30); MONOCYTES % (AUTO) 6.4 % (0.0-11.0); NEUTROPHILS # (AUTO) 28.8 K/uL (1.8-8.9); PLATELET COUNT (AUTO) 254 K/uL (179-408)
[2023-11-06 05:28] LABS: CARBON DIOXIDE 28 mmol/L (21-32); CHLORIDE 105 mmol/L (98-107); CREATININE 1.7 mg/dL (0.6-1.3); GLUCOSE 182 mg/dL (74-106); POTASSIUM 3.8 mmol/L (3.5-5.1); SODIUM SERUM 141 mmol/L (136-145); UREA NITROGEN, BLOOD 18 mg/dL (7-18)
[2023-11-06 05:40] LABS: ABG BASE EXCESS 0.4 mmol/L (-2.0-2.0); ABG HCO3 24.7 mmol/L (22.0-26.0); ABG PO2 74.1 mmHg (75.0-100.0); ABG SITE LEFT BRACHIAL; ABG TOTAL HEMOGLOBIN 11.9 G/dL (12.0-16.0); AaDO2 95.2 mmHg; COHb 1.1 % (0.0-3.9); MetHb 0.1 % (0.0-1.5); O2Hb 93.9 % (94.0-97.0)
[2023-11-06 05:47] LABS: DIFFERENTIAL COMMENT 1; WHITE BLOOD COUNT (AUTO) 32.3 K/uL (3.8-11.8)
[2023-11-06 07:32] LABS: BAND % (MANUAL) 2 % (0-10); LYMPHOCYTES % (MANUAL) 4 % (20-40); MONOCYTES % (MANUAL) 5 % (2-10); NEUTROPHILS % (MANUAL) 89 % (42-75); PLATELET ESTIMATE ADEQUATE
[2023-11-06 07:33] LABS: ANISOCYTOSIS 1+
[2023-11-06 07:34] LABS: HYPOCHROMASIA 1+
[2023-11-06 13:37] LABS: CALCIUM 9.7 mg/dL (8.5-10.1); CARBON DIOXIDE 28 mmol/L (21-32); CHLORIDE 107 mmol/L (98-107); CREATININE 1.7 mg/dL (0.6-1.3); GLUCOSE 152 mg/dL (74-106); POTASSIUM 3.8 mmol/L (3.5-5.1); SODIUM SERUM 141 mmol/L (136-145); UREA NITROGEN, BLOOD 17 mg/dL (7-18)
[2023-11-06] MEDS: MORPHINE SULFATE 2 MG/1 ML DISP.SYRIN IV PRN (16:58)
[2023-11-06] MEDS: ACETAMINOPHEN 650 MG/20.3 ML LIQUID UDC GT PRN (17:55)
[2023-11-07] VITALS (51 sets, daily range): BP systolic 95–170; BP diastolic 70–121; TEMP 97.8–98.9; O2SAT 80–99
[2023-11-07 07:08] LABS: BASOPHILS % (AUTO) 0.1 % (0.0-2.0); EOSINOPHILS % (AUTO) 0.2 % (0.0-7.0); HEMATOCRIT 34.4 % (31.2-41.9); HEMOGLOBIN 10.9 g/dL (10.9-14.3); LYMPHOCYTES # (AUTO) 1.3 K/uL (0.8-4.8); LYMPHOCYTES % (AUTO) 4.4 % (20.5-51.5); MEAN CORPUSCULAR HEMOGLOBIN 24.8 uug (24.7-32.8); MEAN CORPUSCULAR HGB CONC 32 g/dL (32.3-35.6); MEAN CORPUSCULAR VOLUME 78.2 fL (75.5-95.3); MONOCYTES # (AUTO) 1.9 K/uL (0.1-1.30); MONOCYTES % (AUTO) 6.3 % (0.0-11.0); NEUTROPHILS # (AUTO) 26.1 K/uL (1.8-8.9); PLATELET COUNT (AUTO) 278 K/uL (179-408); RED CELL DISTRIBUTION WIDTH 17.2 % (12.3-17.7); WHITE BLOOD COUNT (AUTO) 29.3 K/uL (3.8-11.8)
[2023-11-07 07:10] LABS: CALCIUM 10.3 mg/dL (8.5-10.1); CARBON DIOXIDE 25 mmol/L (21-32); CHLORIDE 107 mmol/L (98-107); CREATININE 1.7 mg/dL (0.6-1.3); GLUCOSE 161 mg/dL (74-106); POTASSIUM 3.8 mmol/L (3.5-5.1); SODIUM SERUM 142 mmol/L (136-145); UREA NITROGEN, BLOOD 20 mg/dL (7-18)
[2023-11-07 07:13] LABS: DIFFERENTIAL COMMENT 1
[2023-11-07] MEDS: hydrALAZINE HCL 20 MG/1 ML VIAL IV PRN (12:06)
[2023-11-08] VITALS (47 sets, daily range): BP systolic 128–165; BP diastolic 65–111; TEMP 96–97.9; O2SAT 92–100
[2023-11-08 07:06] LABS: BASOPHILS % (AUTO) 0.1 % (0.0-2.0); EOSINOPHILS # (AUTO) 0.1 K/uL (0.0-0.7); EOSINOPHILS % (AUTO) 0.3 % (0.0-7.0); HEMATOCRIT 31.7 % (31.2-41.9); HEMOGLOBIN 10.1 g/dL (10.9-14.3); LYMPHOCYTES # (AUTO) 1.1 K/uL (0.8-4.8); LYMPHOCYTES % (AUTO) 4.5 % (20.5-51.5); MEAN CORPUSCULAR HEMOGLOBIN 24.8 uug (24.7-32.8); MEAN CORPUSCULAR HGB CONC 32 g/dL (32.3-35.6); MEAN CORPUSCULAR VOLUME 77.8 fL (75.5-95.3); MONOCYTES # (AUTO) 1.5 K/uL (0.1-1.30); MONOCYTES % (AUTO) 6.3 % (0.0-11.0); NEUTROPHILS # (AUTO) 21.6 K/uL (1.8-8.9); NEUTROPHILS % (AUTO) 88.8 % (38.5-71.5); PLATELET COUNT (AUTO) 285 K/uL (179-408); RED BLOOD CELL COUNT(AUTO) 4.08 MIL/uL (3.63-4.92); RED CELL DISTRIBUTION WIDTH 17.4 % (12.3-17.7); WHITE BLOOD COUNT (AUTO) 24.4 K/uL (3.8-11.8)
[2023-11-08 07:10] LABS: DIFFERENTIAL COMMENT 1
[2023-11-08 07:33] LABS: CALCIUM 10.4 mg/dL (8.5-10.1); CARBON DIOXIDE 26 mmol/L (21-32); CHLORIDE 107 mmol/L (98-107); CREATININE 1.5 mg/dL (0.6-1.3); GLUCOSE 171 mg/dL (74-106); POTASSIUM 3.6 mmol/L (3.5-5.1); SODIUM SERUM 143 mmol/L (136-145); UREA NITROGEN, BLOOD 22 mg/dL (7-18)
[2023-11-08] MEDS: VANCOMYCIN IV 1,250 MG in IV DEXTROSE 5% 250 ML IV SCH (09:20)
[2023-11-08] MEDS: ONDANSETRON 4 MG/2 ML VIAL IV PRN (12:29)
[2023-11-08] MEDS: MIRALAX 17 GM POWD.PACK PO SCH (15:54)
[2023-11-09] VITALS (32 sets, daily range): BP systolic 111–166; BP diastolic 65–107; TEMP 97.6–98.7; O2SAT 91–100
[2023-11-09 05:33] LABS: BASOPHILS # (AUTO) 0.1 K/UL (0.0-0.2); BASOPHILS % (AUTO) 0.3 % (0.0-2.0); EOSINOPHILS # (AUTO) 0.1 K/uL (0.0-0.7); EOSINOPHILS % (AUTO) 0.4 % (0.0-7.0); HEMATOCRIT 32.7 % (31.2-41.9); HEMOGLOBIN 10.6 g/dL (10.9-14.3); LYMPHOCYTES # (AUTO) 1.1 K/uL (0.8-4.8); LYMPHOCYTES % (AUTO) 4.9 % (20.5-51.5); MEAN CORPUSCULAR HGB CONC 32 g/dL (32.3-35.6); MEAN CORPUSCULAR VOLUME 77.4 fL (75.5-95.3); MONOCYTES # (AUTO) 1.2 K/uL (0.1-1.30); MONOCYTES % (AUTO) 5.1 % (0.0-11.0); NEUTROPHILS # (AUTO) 20.8 K/uL (1.8-8.9); NEUTROPHILS % (AUTO) 89.3 % (38.5-71.5); PLATELET COUNT (AUTO) 284 K/uL (179-408); RED BLOOD CELL COUNT(AUTO) 4.22 MIL/uL (3.63-4.92); RED CELL DISTRIBUTION WIDTH 17.4 % (12.3-17.7); WHITE BLOOD COUNT (AUTO) 23.2 K/uL (3.8-11.8)
[2023-11-09 05:43] LABS: DIFFERENTIAL COMMENT 1
[2023-11-09 05:52] LABS: CALCIUM 10.1 mg/dL (8.5-10.1); CARBON DIOXIDE 27 mmol/L (21-32); CHLORIDE 106 mmol/L (98-107); CREATININE 1.4 mg/dL (0.6-1.3); GLUCOSE 136 mg/dL (74-106); MAGNESIUM 1.7 mg/dL (1.8-2.4); PHOSPHOROUS 2.7 mg/dL (2.5-4.9); POTASSIUM 3.8 mmol/L (3.5-5.1); SODIUM SERUM 141 mmol/L (136-145); UREA NITROGEN, BLOOD 22 mg/dL (7-18)
[2023-11-09] MEDS: MAGNESIUM SULFATE/D5W 100 ML IV SCH ×2 (09:15→12:26)
[2023-11-09] MEDS: FUROSEMIDE 20 MG/2 ML VIAL IV SCH (09:15)
[2023-11-10] VITALS (28 sets, daily range): BP systolic 115–137; BP diastolic 66–93; TEMP 97.5–98.3; O2SAT 91–100
[2023-11-10 08:37] LABS: ABG BASE EXCESS 4.3 mmol/L (-2.0-2.0); ABG HCO3 28.3 mmol/L (22.0-26.0); ABG PCO2 40.1 mmHg (35.0-48.0); ABG PH 7.467 (7.340-7.440); ABG PO2 70.6 mmHg (75.0-100.0); ABG SITE LEFT RADIAL; ABG TOTAL HEMOGLOBIN 12.1 G/dL (12.0-16.0); AaDO2 95.1 mmHg; COHb 0.7 % (0.0-3.9); MetHb 0.1 % (0.0-1.5); O2Hb 93.8 % (94.0-97.0)
[2023-11-10 14:58] LABS: BASOPHILS % (AUTO) 0.2 % (0.0-2.0); EOSINOPHILS % (AUTO) 0.1 % (0.0-7.0); HEMATOCRIT 36.7 % (31.2-41.9); HEMOGLOBIN 11.3 g/dL (10.9-14.3); LYMPHOCYTES # (AUTO) 1.1 K/uL (0.8-4.8); LYMPHOCYTES % (AUTO) 4.4 % (20.5-51.5); MEAN CORPUSCULAR HEMOGLOBIN 23.9 uug (24.7-32.8); MEAN CORPUSCULAR HGB CONC 31 g/dL (32.3-35.6); MONOCYTES # (AUTO) 0.9 K/uL (0.1-1.30); MONOCYTES % (AUTO) 3.5 % (0.0-11.0); NEUTROPHILS # (AUTO) 22.7 K/uL (1.8-8.9); NEUTROPHILS % (AUTO) 91.8 % (38.5-71.5); PLATELET COUNT (AUTO) 320 K/uL (179-408); RED CELL DISTRIBUTION WIDTH 18.1 % (12.3-17.7); WHITE BLOOD COUNT (AUTO) 24.7 K/uL (3.8-11.8)
[2023-11-10 15:00] LABS: DIFFERENTIAL COMMENT 1
[2023-11-10 15:10] LABS: ALANINE AMINOTRANSFERASE 13 U/L (14-59); ALBUMIN 1.7 g/dL (3.4-5.0); ALKALINE PHOSPHATASE 79 U/L (50-136); ASPARTATE AMINOTRANSFERASE 15 U/L (15-37); BILIRUBIN,TOTAL 0.6 mg/dL (0.2-1.0); CALCIUM 9.9 mg/dL (8.5-10.1); CARBON DIOXIDE 32 mmol/L (21-32); CHLORIDE 103 mmol/L (98-107); CREATININE 1.3 mg/dL (0.6-1.3); GLUCOSE 125 mg/dL (74-106); MAGNESIUM 2.3 mg/dL (1.8-2.4); PHOSPHOROUS 2.6 mg/dL (2.5-4.9); SODIUM SERUM 141 mmol/L (136-145); TOTAL PROTEIN, SERUM 5.5 g/dL (6.4-8.2); UREA NITROGEN, BLOOD 21 mg/dL (7-18)
[2023-11-10 15:53] LABS: POTASSIUM 3.5 mmol/L (3.5-5.1)
[2023-11-11] VITALS (26 sets, daily range): BP systolic 100–147; BP diastolic 52–112; TEMP 97.5–98.2; O2SAT 95–100
[2023-11-11 04:47] LABS: BASOPHILS # (AUTO) 0.1 K/UL (0.0-0.2); BASOPHILS % (AUTO) 0.3 % (0.0-2.0); EOSINOPHILS # (AUTO) 0.1 K/uL (0.0-0.7); EOSINOPHILS % (AUTO) 0.3 % (0.0-7.0); HEMATOCRIT 33.6 % (31.2-41.9); HEMOGLOBIN 10.5 g/dL (10.9-14.3); LYMPHOCYTES % (AUTO) 4.4 % (20.5-51.5); MEAN CORPUSCULAR HEMOGLOBIN 24.4 uug (24.7-32.8); MEAN CORPUSCULAR HGB CONC 31 g/dL (32.3-35.6); MONOCYTES # (AUTO) 1.1 K/uL (0.1-1.30); NEUTROPHILS # (AUTO) 20.1 K/uL (1.8-8.9); PLATELET COUNT (AUTO) 263 K/uL (179-408); RED CELL DISTRIBUTION WIDTH 17.9 % (12.3-17.7); WHITE BLOOD COUNT (AUTO) 22.3 K/uL (3.8-11.8)
[2023-11-11 04:58] LABS: DIFFERENTIAL COMMENT 1
[2023-11-11 05:12] LABS: CALCIUM 9.8 mg/dL (8.5-10.1); CREATININE 1.3 mg/dL (0.6-1.3); MAGNESIUM 2.3 mg/dL (1.8-2.4); PHOSPHOROUS 2.8 mg/dL (2.5-4.9); POTASSIUM 3.4 mmol/L (3.5-5.1)
[2023-11-11] MEDS: POTASSIUM CHLORIDE 50 ML IV SCH (06:53)
[2023-11-12] VITALS (37 sets, daily range): BP systolic 103–154; BP diastolic 67–116; TEMP 97.3–98.8; O2SAT 90–99
[2023-11-12 04:50] LABS: BASOPHILS % (AUTO) 0.2 % (0.0-2.0); EOSINOPHILS # (AUTO) 0.1 K/uL (0.0-0.7); EOSINOPHILS % (AUTO) 0.3 % (0.0-7.0); HEMATOCRIT 34.5 % (31.2-41.9); LYMPHOCYTES # (AUTO) 0.9 K/uL (0.8-4.8); LYMPHOCYTES % (AUTO) 3.3 % (20.5-51.5); MEAN CORPUSCULAR HEMOGLOBIN 24.6 uug (24.7-32.8); MEAN CORPUSCULAR HGB CONC 32 g/dL (32.3-35.6); MEAN CORPUSCULAR VOLUME 77.4 fL (75.5-95.3); MONOCYTES # (AUTO) 1.3 K/uL (0.1-1.30); MONOCYTES % (AUTO) 4.7 % (0.0-11.0); NEUTROPHILS # (AUTO) 25.7 K/uL (1.8-8.9); NEUTROPHILS % (AUTO) 91.5 % (38.5-71.5); PLATELET COUNT (AUTO) 281 K/uL (179-408); RED BLOOD CELL COUNT(AUTO) 4.46 MIL/uL (3.63-4.92); RED CELL DISTRIBUTION WIDTH 18.1 % (12.3-17.7)
[2023-11-12 04:53] LABS: DIFFERENTIAL COMMENT 1
[2023-11-12 05:06] LABS: CARBON DIOXIDE 33 mmol/L (21-32); CHLORIDE 106 mmol/L (98-107); CREATININE 1.2 mg/dL (0.6-1.3); GLUCOSE 120 mg/dL (74-106); PHOSPHOROUS 1.9 mg/dL (2.5-4.9); POTASSIUM 3.6 mmol/L (3.5-5.1); SODIUM SERUM 141 mmol/L (136-145); UREA NITROGEN, BLOOD 23 mg/dL (7-18)
[2023-11-12] MEDS: POTASSIUM PHOSPHATE MM 15 MMOL in IV NORMAL SALINE 250 ML IV ONE (08:37)
[2023-11-13] VITALS (29 sets, daily range): BP systolic 114–151; BP diastolic 64–98; TEMP 97.7–98.8; O2SAT 90–100
[2023-11-13 05:05] LABS: BASOPHILS # (AUTO) 0.1 K/UL (0.0-0.2); BASOPHILS % (AUTO) 0.5 % (0.0-2.0); EOSINOPHILS # (AUTO) 0.2 K/uL (0.0-0.7); EOSINOPHILS % (AUTO) 0.8 % (0.0-7.0); HEMATOCRIT 33.8 % (31.2-41.9); HEMOGLOBIN 10.8 g/dL (10.9-14.3); LYMPHOCYTES % (AUTO) 4.5 % (20.5-51.5); MEAN CORPUSCULAR HEMOGLOBIN 24.7 uug (24.7-32.8); MEAN CORPUSCULAR HGB CONC 32 g/dL (32.3-35.6); MEAN CORPUSCULAR VOLUME 76.8 fL (75.5-95.3); MONOCYTES # (AUTO) 1.4 K/uL (0.1-1.30); MONOCYTES % (AUTO) 6.5 % (0.0-11.0); NEUTROPHILS # (AUTO) 19.2 K/uL (1.8-8.9); NEUTROPHILS % (AUTO) 87.7 % (38.5-71.5); PLATELET COUNT (AUTO) 283 K/uL (179-408); RED CELL DISTRIBUTION WIDTH 18.1 % (12.3-17.7); WHITE BLOOD COUNT (AUTO) 21.9 K/uL (3.8-11.8)
[2023-11-13 05:13] LABS: DIFFERENTIAL COMMENT 1
[2023-11-13 05:18] LABS: CARBON DIOXIDE 34 mmol/L (21-32); CHLORIDE 106 mmol/L (98-107); CREATININE 1.2 mg/dL (0.6-1.3); GLUCOSE 100 mg/dL (74-106); MAGNESIUM 2.1 mg/dL (1.8-2.4); PHOSPHOROUS 2.5 mg/dL (2.5-4.9); POTASSIUM 3.6 mmol/L (3.5-5.1); SODIUM SERUM 143 mmol/L (136-145); UREA NITROGEN, BLOOD 19 mg/dL (7-18)
[2023-11-13] MEDS: HYDROGEN PEROXIDE 3% 118 ML BOTTLE MM SCH (18:00)
[2023-11-14] VITALS (25 sets, daily range): BP systolic 100–155; BP diastolic 52–104; TEMP 97.6–98.4; O2SAT 94–100
[2023-11-14 04:47] LABS: BASOPHILS # (AUTO) 0.1 K/UL (0.0-0.2); BASOPHILS % (AUTO) 0.4 % (0.0-2.0); EOSINOPHILS # (AUTO) 0.1 K/uL (0.0-0.7); EOSINOPHILS % (AUTO) 0.7 % (0.0-7.0); HEMATOCRIT 32.8 % (31.2-41.9); HEMOGLOBIN 10.4 g/dL (10.9-14.3); LYMPHOCYTES # (AUTO) 1.1 K/uL (0.8-4.8); LYMPHOCYTES % (AUTO) 5.8 % (20.5-51.5); MEAN CORPUSCULAR HEMOGLOBIN 24.8 uug (24.7-32.8); MEAN CORPUSCULAR HGB CONC 32 g/dL (32.3-35.6); MEAN CORPUSCULAR VOLUME 77.7 fL (75.5-95.3); MONOCYTES # (AUTO) 1.1 K/uL (0.1-1.30); MONOCYTES % (AUTO) 5.8 % (0.0-11.0); NEUTROPHILS # (AUTO) 16.4 K/uL (1.8-8.9); NEUTROPHILS % (AUTO) 87.3 % (38.5-71.5); PLATELET COUNT (AUTO) 279 K/uL (179-408); RED BLOOD CELL COUNT(AUTO) 4.22 MIL/uL (3.63-4.92); RED CELL DISTRIBUTION WIDTH 18.1 % (12.3-17.7); WHITE BLOOD COUNT (AUTO) 18.8 K/uL (3.8-11.8)
[2023-11-14 05:25] LABS: DIFFERENTIAL COMMENT 1
[2023-11-14 05:47] LABS: ALBUMIN 1.6 g/dL (3.4-5.0); BILIRUBIN,TOTAL 0.7 mg/dL (0.2-1.0); CALCIUM 9.6 mg/dL (8.5-10.1); MAGNESIUM 1.9 mg/dL (1.8-2.4); PHOSPHOROUS 2.5 mg/dL (2.5-4.9); POTASSIUM 3.8 mmol/L (3.5-5.1); TOTAL PROTEIN, SERUM 5.3 g/dL (6.4-8.2)
[2023-11-14] MEDS ORDERED: IOHEXOL 300MG/ML 100 ML INFUS..BTL ONE (08:46)
[2023-11-14] MEDS ORDERED: SWABABLE VALVE TRANSFER SET EA MC ONE (08:46)
[2023-11-14] MEDS ORDERED: IV NORMAL SALINE 250 ML IV ONE (08:46)
[2023-11-14] MEDS ORDERED: IOHEXOL 350 100 ML INFUS..BTL ONE (08:47)
[2023-11-14] MEDS ORDERED: QUETIAPINE FUMARATE 25 MG TABLET PO SCH (21:00)
[2023-11-14] MEDS: QUETIAPINE FUMARATE 25 MG TABLET PO PRN (21:53)
[2023-11-15] VITALS (26 sets, daily range): BP systolic 104–137; BP diastolic 53–80; TEMP 97.6–98.4; O2SAT 92–100
[2023-11-15 04:40] LABS: BASOPHILS # (AUTO) 0.1 K/UL (0.0-0.2); BASOPHILS % (AUTO) 0.4 % (0.0-2.0); EOSINOPHILS # (AUTO) 0.1 K/uL (0.0-0.7); HEMOGLOBIN 9.8 g/dL (10.9-14.3); LYMPHOCYTES # (AUTO) 0.9 K/uL (0.8-4.8); LYMPHOCYTES % (AUTO) 6.5 % (20.5-51.5); MEAN CORPUSCULAR HEMOGLOBIN 24.7 uug (24.7-32.8); MEAN CORPUSCULAR HGB CONC 32 g/dL (32.3-35.6); MONOCYTES # (AUTO) 1.1 K/uL (0.1-1.30); NEUTROPHILS # (AUTO) 11.8 K/uL (1.8-8.9); NEUTROPHILS % (AUTO) 84.1 % (38.5-71.5); PLATELET COUNT (AUTO) 255 K/uL (179-408); RED BLOOD CELL COUNT(AUTO) 3.98 MIL/uL (3.63-4.92); RED CELL DISTRIBUTION WIDTH 17.9 % (12.3-17.7)
[2023-11-15 05:14] LABS: DIFFERENTIAL COMMENT 1
[2023-11-15 05:23] LABS: CALCIUM 9.6 mg/dL (8.5-10.1); CARBON DIOXIDE 33 mmol/L (21-32); CHLORIDE 103 mmol/L (98-107); CREATININE 1.1 mg/dL (0.6-1.3); GLUCOSE 117 mg/dL (74-106); MAGNESIUM 1.8 mg/dL (1.8-2.4); PHOSPHOROUS 2.2 mg/dL (2.5-4.9); POTASSIUM 3.5 mmol/L (3.5-5.1); SODIUM SERUM 141 mmol/L (136-145); UREA NITROGEN, BLOOD 13 mg/dL (7-18)
[2023-11-15] MEDS: ENSURE WITH FIBER 237 ML LIQUID (CHOCOLATE) PO SCH (17:00)
[2023-11-15] MEDS: NEUTRA PHOS PACKET PO ONE (17:30)
[2023-11-15] MEDS ORDERED: DEXTROSE 50% 50 ML DISP.SYRIN IV PRN (17:45)
[2023-11-15] MEDS: BLOOD SUGAR DIAGNOSTIC 1 EACH STRIP VI SCH (20:29)
[2023-11-15] MEDS: INSULIN REGULAR, HUMAN 300 UNIT/3 ML VIAL SQ PRN (20:32)
[2023-11-16] VITALS (25 sets, daily range): BP systolic 87–137; BP diastolic 48–94; TEMP 97.7–98.6; O2SAT 91–100
[2023-11-16 05:10] LABS: CALCIUM 9.4 mg/dL (8.5-10.1); CARBON DIOXIDE 31 mmol/L (21-32); CHLORIDE 104 mmol/L (98-107); GLUCOSE 117 mg/dL (74-106); PHOSPHOROUS 2.8 mg/dL (2.5-4.9); POTASSIUM 3.7 mmol/L (3.5-5.1); SODIUM SERUM 140 mmol/L (136-145); UREA NITROGEN, BLOOD 13 mg/dL (7-18)
[2023-11-16] MEDS ORDERED: LIDOCAINE HCL 1% 20 ML VIAL ONE (12:23)
[2023-11-16] MEDS ORDERED: MIDAZOLAM HCL 2 MG/2 ML VIAL IV PRN (13:15)
[2023-11-16] MEDS ORDERED: FLUMAZENIL 0.5 MG/5 ML VIAL IVP PRN (13:15)
[2023-11-16] MEDS ORDERED: NALOXONE HCL 0.4 MG/ML AMPUL IV PRN (13:15)
[2023-11-16] MEDS ORDERED: FENTANYL CITRATE 100 MCG/2 ML AMPUL IVP PRN (13:15)
[2023-11-16] MEDS: HYDROGEN PEROXIDE 3% 118 ML BOTTLE TOP ONE (15:45)
[2023-11-16] MEDS: QUETIAPINE FUMARATE 25 MG TABLET PO PRN (20:48)
[2023-11-17] VITALS (13 sets, daily range): BP systolic 104–142; BP diastolic 53–110; TEMP 97.7–98.3; O2SAT 92–96
[2023-11-17 05:03] LABS: BASOPHILS # (AUTO) 0.1 K/UL (0.0-0.2); BASOPHILS % (AUTO) 0.4 % (0.0-2.0); EOSINOPHILS # (AUTO) 0.1 K/uL (0.0-0.7); HEMATOCRIT 30.3 % (31.2-41.9); HEMOGLOBIN 9.7 g/dL (10.9-14.3); LYMPHOCYTES % (AUTO) 6.2 % (20.5-51.5); MEAN CORPUSCULAR HEMOGLOBIN 24.8 uug (24.7-32.8); MEAN CORPUSCULAR HGB CONC 32 g/dL (32.3-35.6); MEAN CORPUSCULAR VOLUME 77.5 fL (75.5-95.3); MONOCYTES # (AUTO) 1.3 K/uL (0.1-1.30); MONOCYTES % (AUTO) 8.4 % (0.0-11.0); NEUTROPHILS # (AUTO) 13.1 K/uL (1.8-8.9); PLATELET COUNT (AUTO) 293 K/uL (179-408); RED BLOOD CELL COUNT(AUTO) 3.91 MIL/uL (3.63-4.92); RED CELL DISTRIBUTION WIDTH 18.7 % (12.3-17.7); WHITE BLOOD COUNT (AUTO) 15.6 K/uL (3.8-11.8)
[2023-11-17 05:16] LABS: DIFFERENTIAL COMMENT 1
[2023-11-17 05:17] LABS: CALCIUM 9.6 mg/dL (8.5-10.1); PHOSPHOROUS 2.9 mg/dL (2.5-4.9); POTASSIUM 3.9 mmol/L (3.5-5.1)
[2023-11-17] MEDS ORDERED: VANCOMYCIN IV 1,250 MG in IV DEXTROSE 5% 250 ML IV SCH (13:00)
[2023-11-17] MEDS: PANTOPRAZOLE SODIUM 40 MG TABLET.DR PO SCH (17:15)
[2023-11-17] MEDS: INSULIN REGULAR, HUMAN 300 UNITS/3 ML VIAL SQ PRN (22:01)
[2023-11-17] MEDS: APIXABAN 5 MG TABLET PO SCH (22:06)
[2023-11-18 00:11] VITALS: O2SAT 95
[2023-11-18 00:26] VITALS: BP 147/67; TEMP 98.2; O2SAT 94
[2023-11-18 04:35] VITALS: BP 137/73; TEMP 98.2; O2SAT 96
[2023-11-18 06:57] LABS: BASOPHILS # (AUTO) 0.1 K/UL (0.0-0.2); BASOPHILS % (AUTO) 0.8 % (0.0-2.0); EOSINOPHILS # (AUTO) 0.1 K/uL (0.0-0.7); EOSINOPHILS % (AUTO) 0.8 % (0.0-7.0); HEMATOCRIT 29.3 % (31.2-41.9); HEMOGLOBIN 9.6 g/dL (10.9-14.3); LYMPHOCYTES # (AUTO) 0.9 K/uL (0.8-4.8); LYMPHOCYTES % (AUTO) 7.1 % (20.5-51.5); MEAN CORPUSCULAR HEMOGLOBIN 25.4 uug (24.7-32.8); MEAN CORPUSCULAR HGB CONC 33 g/dL (32.3-35.6); MEAN CORPUSCULAR VOLUME 77.2 fL (75.5-95.3); MONOCYTES # (AUTO) 1.3 K/uL (0.1-1.30); MONOCYTES % (AUTO) 9.9 % (0.0-11.0); NEUTROPHILS # (AUTO) 10.8 K/uL (1.8-8.9); NEUTROPHILS % (AUTO) 81.4 % (38.5-71.5); PLATELET COUNT (AUTO) 313 K/uL (179-408); RED BLOOD CELL COUNT(AUTO) 3.79 MIL/uL (3.63-4.92); RED CELL DISTRIBUTION WIDTH 18.5 % (12.3-17.7); WHITE BLOOD COUNT (AUTO) 13.3 K/uL (3.8-11.8)
[2023-11-18 07:17] LABS: CALCIUM 10.1 mg/dL (8.5-10.1); CREATININE 1.1 mg/dL (0.6-1.3); MAGNESIUM 1.9 mg/dL (1.8-2.4); PHOSPHOROUS 2.4 mg/dL (2.5-4.9); POTASSIUM 3.8 mmol/L (3.5-5.1)
[2023-11-18 07:38] LABS: DIFFERENTIAL COMMENT 1
[2023-11-18 10:56] VITALS: BP 120/51; TEMP 98.6; O2SAT 92
[2023-11-18 15:06] VITALS: BP 135/76; TEMP 98.4; O2SAT 98
[2023-11-18] MEDS: NEUTRA PHOS PACKET PO ONE (15:30)
[2023-11-18 20:48] VITALS: BP 146/63; TEMP 97.9; O2SAT 95
[2023-11-19 04:21] VITALS: O2SAT 96
[2023-11-19 06:01] VITALS: BP 125/66; TEMP 97.5; O2SAT 95
[2023-11-19 07:30] LABS: BASOPHILS # (AUTO) 0.1 K/UL (0.0-0.2); DIFFERENTIAL COMMENT 0; EOSINOPHILS # (AUTO) 0.2 K/uL (0.0-0.7); EOSINOPHILS % (AUTO) 1.3 % (0.0-7.0); HEMATOCRIT 27.4 % (31.2-41.9); HEMOGLOBIN 8.9 g/dL (10.9-14.3); LYMPHOCYTES % (AUTO) 8.1 % (20.5-51.5); MEAN CORPUSCULAR HGB CONC 32 g/dL (32.3-35.6); MEAN CORPUSCULAR VOLUME 77.3 fL (75.5-95.3); MONOCYTES # (AUTO) 1.4 K/uL (0.1-1.30); MONOCYTES % (AUTO) 10.7 % (0.0-11.0); NEUTROPHILS # (AUTO) 10.1 K/uL (1.8-8.9); NEUTROPHILS % (AUTO) 78.9 % (38.5-71.5); PLATELET COUNT (AUTO) 331 K/uL (179-408); RED BLOOD CELL COUNT(AUTO) 3.55 MIL/uL (3.63-4.92); WHITE BLOOD COUNT (AUTO) 12.8 K/uL (3.8-11.8)
[2023-11-19 07:49] LABS: CALCIUM 10.3 mg/dL (8.5-10.1); CREATININE 1.1 mg/dL (0.6-1.3); MAGNESIUM 2.1 mg/dL (1.8-2.4); PHOSPHOROUS 2.9 mg/dL (2.5-4.9); POTASSIUM 4.4 mmol/L (3.5-5.1)
[2023-11-19 11:57] VITALS: BP 134/75; TEMP 98.1; O2SAT 93
[2023-11-19] MEDS ORDERED: IOHEXOL 300MG/ML 100 ML INFUS..BTL ONE (12:36)
[2023-11-19] MEDS ORDERED: IV NORMAL SALINE 250 ML IV ONE (12:36)
[2023-11-19] MEDS ORDERED: SWABABLE VALVE TRANSFER SET EA MC ONE (12:36)
[2023-11-19] MEDS ORDERED: MEROPENEM 1 G in IV NORMAL SALINE 100 ML IV SCH (14:45)
[2023-11-19] MEDS: MEROPENEM 1 G in IV NORMAL SALINE 100 ML IV SCH (15:28)
[2023-11-19 16:00] VITALS: BP 125/70; TEMP 97.9; O2SAT 96
[2023-11-19 20:00] VITALS: BP 152/71; TEMP 98.2; O2SAT 92
[2023-11-20 06:32] VITALS: BP 144/65; TEMP 97.9; O2SAT 93
[2023-11-20 07:02] LABS: BASOPHILS # (AUTO) 0.1 K/UL (0.0-0.2); BASOPHILS % (AUTO) 1.1 % (0.0-2.0); EOSINOPHILS # (AUTO) 0.2 K/uL (0.0-0.7); EOSINOPHILS % (AUTO) 1.3 % (0.0-7.0); HEMATOCRIT 27.8 % (31.2-41.9); HEMOGLOBIN 9.1 g/dL (10.9-14.3); LYMPHOCYTES # (AUTO) 1.1 K/uL (0.8-4.8); LYMPHOCYTES % (AUTO) 9.5 % (20.5-51.5); MEAN CORPUSCULAR HEMOGLOBIN 25.2 uug (24.7-32.8); MEAN CORPUSCULAR HGB CONC 33 g/dL (32.3-35.6); MEAN CORPUSCULAR VOLUME 76.9 fL (75.5-95.3); MONOCYTES # (AUTO) 1.2 K/uL (0.1-1.30); MONOCYTES % (AUTO) 9.9 % (0.0-11.0); NEUTROPHILS # (AUTO) 9.3 K/uL (1.8-8.9); NEUTROPHILS % (AUTO) 78.2 % (38.5-71.5); PLATELET COUNT (AUTO) 366 K/uL (179-408); RED BLOOD CELL COUNT(AUTO) 3.61 MIL/uL (3.63-4.92); RED CELL DISTRIBUTION WIDTH 18.7 % (12.3-17.7); WHITE BLOOD COUNT (AUTO) 11.9 K/uL (3.8-11.8)
[2023-11-20 07:10] LABS: DIFFERENTIAL COMMENT 1
[2023-11-20 07:38] LABS: CALCIUM 10.3 mg/dL (8.5-10.1); CREATININE 1.1 mg/dL (0.6-1.3); MAGNESIUM 2.1 mg/dL (1.8-2.4); POTASSIUM 4.5 mmol/L (3.5-5.1)
[2023-11-20 08:35] VITALS: O2SAT 95
[2023-11-20 11:33] VITALS: BP 137/77; TEMP 97.5; O2SAT 97
[2023-11-20 16:10] VITALS: BP 154/73; TEMP 97.6; O2SAT 95
[2023-11-20] MEDS ORDERED: MORPHINE SULFATE 2 MG/1 ML DISP.SYRIN IM ONE ×2 (17:00→19:00)
[2023-11-20 20:10] VITALS: BP 137/84; TEMP 98.1; O2SAT 94
[2023-11-21 05:48] VITALS: BP 118/70; TEMP 98.2; O2SAT 94
[2023-11-21 07:32] LABS: BASOPHILS # (AUTO) 0.1 K/UL (0.0-0.2); BASOPHILS % (AUTO) 1.1 % (0.0-2.0); EOSINOPHILS # (AUTO) 0.1 K/uL (0.0-0.7); HEMATOCRIT 28.7 % (31.2-41.9); HEMOGLOBIN 9.5 g/dL (10.9-14.3); LYMPHOCYTES # (AUTO) 0.9 K/uL (0.8-4.8); LYMPHOCYTES % (AUTO) 6.9 % (20.5-51.5); MEAN CORPUSCULAR HEMOGLOBIN 25.5 uug (24.7-32.8); MEAN CORPUSCULAR HGB CONC 33 g/dL (32.3-35.6); MEAN CORPUSCULAR VOLUME 77.3 fL (75.5-95.3); MONOCYTES # (AUTO) 1.3 K/uL (0.1-1.30); MONOCYTES % (AUTO) 10.5 % (0.0-11.0); NEUTROPHILS # (AUTO) 10.1 K/uL (1.8-8.9); NEUTROPHILS % (AUTO) 80.5 % (38.5-71.5); PLATELET COUNT (AUTO) 397 K/uL (179-408); RED BLOOD CELL COUNT(AUTO) 3.71 MIL/uL (3.63-4.92); RED CELL DISTRIBUTION WIDTH 19.2 % (12.3-17.7); WHITE BLOOD COUNT (AUTO) 12.6 K/uL (3.8-11.8)
[2023-11-21 07:35] LABS: DIFFERENTIAL COMMENT 1
[2023-11-21 08:05] LABS: CALCIUM 10.1 mg/dL (8.5-10.1); CREATININE 1.1 mg/dL (0.6-1.3); PHOSPHOROUS 3.5 mg/dL (2.5-4.9); POTASSIUM 4.6 mmol/L (3.5-5.1)
[2023-11-21 11:06] LABS: FOLATE (FOLIC ACID), SERUM 9.6 ng/mL (>3.0)
[2023-11-21 11:58] VITALS: BP 118/64; TEMP 97.2; O2SAT 98
[2023-11-21 16:27] VITALS: BP 126/50; TEMP 98.2; O2SAT 95
[2023-11-21] MEDS: GLUCERNA SHAKE 237 ML CAN PO SCH (17:10)
[2023-11-21 23:22] VITALS: BP 136/63; TEMP 97.8; O2SAT 97
[2023-11-22 04:50] VITALS: BP 134/65; TEMP 98.2; O2SAT 100
[2023-11-22 07:31] LABS: BASOPHILS # (AUTO) 0.1 K/UL (0.0-0.2); BASOPHILS % (AUTO) 1.3 % (0.0-2.0); EOSINOPHILS # (AUTO) 0.1 K/uL (0.0-0.7); EOSINOPHILS % (AUTO) 1.6 % (0.0-7.0); HEMATOCRIT 29.3 % (31.2-41.9); HEMOGLOBIN 9.6 g/dL (10.9-14.3); LYMPHOCYTES # (AUTO) 0.9 K/uL (0.8-4.8); LYMPHOCYTES % (AUTO) 11.4 % (20.5-51.5); MEAN CORPUSCULAR HEMOGLOBIN 25.5 uug (24.7-32.8); MEAN CORPUSCULAR HGB CONC 33 g/dL (32.3-35.6); MEAN CORPUSCULAR VOLUME 77.5 fL (75.5-95.3); MONOCYTES # (AUTO) 0.9 K/uL (0.1-1.30); MONOCYTES % (AUTO) 11.4 % (0.0-11.0); NEUTROPHILS # (AUTO) 5.9 K/uL (1.8-8.9); NEUTROPHILS % (AUTO) 74.3 % (38.5-71.5); PLATELET COUNT (AUTO) 348 K/uL (179-408); RED BLOOD CELL COUNT(AUTO) 3.77 MIL/uL (3.63-4.92); RED CELL DISTRIBUTION WIDTH 19.3 % (12.3-17.7)
[2023-11-22 07:44] LABS: CALCIUM 10.2 mg/dL (8.5-10.1); CREATININE 1.1 mg/dL (0.6-1.3); DIFFERENTIAL COMMENT 1; MAGNESIUM 2.1 mg/dL (1.8-2.4); PHOSPHOROUS 3.1 mg/dL (2.5-4.9); POTASSIUM 4.1 mmol/L (3.5-5.1)
[2023-11-22 11:06] VITALS: BP 113/71; TEMP 97.5; O2SAT 96
[2023-11-22 15:33] VITALS: BP 137/77; TEMP 97.5; O2SAT 96
[2023-11-22] MEDS ORDERED: IV NORMAL SALINE 250 ML IV ONE (15:50)
[2023-11-22] MEDS ORDERED: IOHEXOL 300MG/ML 100 ML INFUS..BTL ONE (15:50)
[2023-11-22] MEDS ORDERED: SWABABLE VALVE TRANSFER SET EA MC ONE (15:50)
[2023-11-22 20:35] VITALS: BP 141/75; TEMP 98.2; O2SAT 93
[2023-11-23 06:40] VITALS: BP 148/84; O2SAT 94
[2023-11-23 09:47] LABS: BASOPHILS # (AUTO) 0.1 K/UL (0.0-0.2); BASOPHILS % (AUTO) 1.3 % (0.0-2.0); EOSINOPHILS # (AUTO) 0.1 K/uL (0.0-0.7); EOSINOPHILS % (AUTO) 1.1 % (0.0-7.0); HEMATOCRIT 32.4 % (31.2-41.9); HEMOGLOBIN 10.6 g/dL (10.9-14.3); LYMPHOCYTES # (AUTO) 0.9 K/uL (0.8-4.8); LYMPHOCYTES % (AUTO) 9.5 % (20.5-51.5); MEAN CORPUSCULAR HEMOGLOBIN 25.5 uug (24.7-32.8); MEAN CORPUSCULAR HGB CONC 33 g/dL (32.3-35.6); MEAN CORPUSCULAR VOLUME 77.8 fL (75.5-95.3); MONOCYTES # (AUTO) 0.9 K/uL (0.1-1.30); MONOCYTES % (AUTO) 9.6 % (0.0-11.0); NEUTROPHILS # (AUTO) 7.4 K/uL (1.8-8.9); NEUTROPHILS % (AUTO) 78.5 % (38.5-71.5); PLATELET COUNT (AUTO) 418 K/uL (179-408); RED BLOOD CELL COUNT(AUTO) 4.17 MIL/uL (3.63-4.92); RED CELL DISTRIBUTION WIDTH 18.9 % (12.3-17.7); WHITE BLOOD COUNT (AUTO) 9.4 K/uL (3.8-11.8)
[2023-11-23 09:53] LABS: DIFFERENTIAL COMMENT 1
[2023-11-23 10:00] LABS: CALCIUM 10.6 mg/dL (8.5-10.1); CREATININE 1.2 mg/dL (0.6-1.3); POTASSIUM 4.1 mmol/L (3.5-5.1)
[2023-11-23 10:07] LABS: ALBUMIN 2.1 g/dL (3.4-5.0); BILIRUBIN,TOTAL 0.5 mg/dL (0.2-1.0)
[2023-11-23 11:30] VITALS: BP 113/64; TEMP 98; O2SAT 98
[2023-11-23] MEDS: QUETIAPINE FUMARATE 25 MG TABLET PO PRN (13:25)
[2023-11-23 16:37] VITALS: BP 120/60; TEMP 97.5; O2SAT 97
[2023-11-23 19:35] VITALS: BP 116/50; TEMP 98.2; O2SAT 98
[2023-11-24 06:00] VITALS: BP 137/68; TEMP 98.2; O2SAT 95
[2023-11-24] MEDS ORDERED: ACET650S13 RC (10:09)
[2023-11-24] MEDS ORDERED: PANT40TA49 PO (10:09)
[2023-11-24] MEDS ORDERED: NUT.237L36 PO (10:09)
[2023-11-24] MEDS ORDERED: MERO1PIG IV (10:09)
[2023-11-24] MEDS ORDERED: DILT30TA35 PO (10:09)
[2023-11-24] MEDS ORDERED: QUET25TA36 PO (10:09)
[2023-11-24] MEDS ORDERED: ACET650S26 GT (10:09)
[2023-11-24 11:11] VITALS: BP 100/71; TEMP 98.4; O2SAT 95
[2023-11-24 12:01] VITALS: BP 128/63
== END 2023-11-24 15:30 | DRG 853 ==
LOC: ER 13:31 → TELE3 21:53 → MEDSURG3 11-02 10:05 → CCU 11-05 00:20 → TELE3 11-17 10:39 → MEDSURG3 11-18 09:15
PROVIDERS: ADMIT Internal Medicine; ATTEND Internal Medicine
PROC: 05HB33Z Insertion of Infusion Device into Right Basilic Vein, Percutaneous Approach (ICD-10-PCS; 2023-11-03)
PROC: 0W9B3ZZ Drainage of Left Pleural Cavity, Percutaneous Approach (ICD-10-PCS; 2023-11-03)
PROC: 0UT90ZL Resection of Uterus, Supracervical, Open Approach (ICD-10-PCS; principal; 2023-11-04)
PROC: 0DBN0ZZ Excision of Sigmoid Colon, Open Approach (ICD-10-PCS; 2023-11-04)
PROC: 0D1E0Z4 Bypass Large Intestine to Cutaneous, Open Approach (ICD-10-PCS; 2023-11-04)
PROC: 0TNB0ZZ Release Bladder, Open Approach (ICD-10-PCS; 2023-11-04)
PROC: 30233N1 Transfusion of Nonautologous Red Blood Cells into Peripheral Vein, Percutaneous Approach (ICD-10-PCS; 2023-11-04)
PROC: 0D1K0Z4 Bypass Ascending Colon to Cutaneous, Open Approach (ICD-10-PCS; 2023-11-04)
PROC: 05HB33Z Insertion of Infusion Device into Right Basilic Vein, Percutaneous Approach (ICD-10-PCS; 2023-11-10)
PROC: 05HC33Z Insertion of Infusion Device into Left Basilic Vein, Percutaneous Approach (ICD-10-PCS; 2023-11-16)
PROC: 0W9G3ZZ Drainage of Peritoneal Cavity, Percutaneous Approach (ICD-10-PCS; 2023-11-16)
DX: A41.9 Sepsis, unspecified organism (principal); G92.8 Other toxic encephalopathy; K65.1 Peritoneal abscess; I50.33 Acute on chronic diastolic (congestive) heart failure; R65.21 Severe sepsis with septic shock; K57.32 Diverticulitis of large intestine without perforation or abscess without bleeding; K63.2 Fistula of intestine; N32.1 Vesicointestinal fistula; N39.0 Urinary tract infection, site not specified; E44.0 Moderate protein-calorie malnutrition; F03.C2 Unspecified dementia, severe, with psychotic disturbance; I48.20 Chronic atrial fibrillation, unspecified; J91.8 Pleural effusion in other conditions classified elsewhere; J98.11 Atelectasis; N82.4 Other female intestinal-genital tract fistulae; N13.30 Unspecified hydronephrosis; D68.59 Other primary thrombophilia; N17.9 Acute kidney failure, unspecified; R18.8 Other ascites; D25.2 Subserosal leiomyoma of uterus; N32.89 Other specified disorders of bladder; E66.9 Obesity, unspecified; Z68.31 Body mass index [BMI] 31.0-31.9, adult; N71.9 Inflammatory disease of uterus, unspecified; Z88.1 Allergy status to other antibiotic agents; Z88.0 Allergy status to penicillin; I27.20 Pulmonary hypertension, unspecified; I11.0 Hypertensive heart disease with heart failure; I25.10 Atherosclerotic heart disease of native coronary artery without angina pectoris; E87.6 Hypokalemia; E88.09 Other disorders of plasma-protein metabolism, not elsewhere classified; E83.51 Hypocalcemia; E83.39 Other disorders of phosphorus metabolism; E78.5 Hyperlipidemia, unspecified; E11.65 Type 2 diabetes mellitus with hyperglycemia; E03.9 Hypothyroidism, unspecified; D50.9 Iron deficiency anemia, unspecified; N20.0 Calculus of kidney; K52.9 Noninfective gastroenteritis and colitis, unspecified; Z79.01 Long term (current) use of anticoagulants; Z90.49 Acquired absence of other specified parts of digestive tract; Z78.1 Physical restraint status; I07.1 Rheumatic tricuspid insufficiency
CPT/HCPCS: 32555; 36415; 36600; 70030-TC; 70450; 71045; 72193; 74018; 76770; 82746; 82803; 83550; 83605; 83615; 83690; 83735; 83921; 84100; 84155; 84443; 84484; 85018; 85025; 85730; 86850; 86900; 86901; 86920; 87040; 88108-TC; 88312-TC; 93005; 93307; 94002; 94640; 94664; 94760; 99082-TC; A4606; A4649; A4663; A6213; C1758; C9113; G0378; J0360; J0696; J1100; J1170; J1644; J1650; J1815; J1940; J2185; J2248; J2250; J2270; J2405; J2765; J2795; J2916; J3010; J3301; J3370; J3475; J3480; J3490; J7040; J7050; J7120; P9016; P9045; Q9967